=== PATIENT | female | born 1950 | race Caucasian/White ===

== ENCOUNTER 2019-12-28 00:43 | Day surgery (SDC) | payer MEDICARE, SELFPAY ==
[2019-10-25 15:27] VITALS: BMI 24.9
[2019-12-25 15:18] VITALS: BMI 25.2
[2019-12-28 09:05] VITALS: BP 126/87; PULSE 85; RESP 14; TEMP 36.3; O2SAT 96
--- NOTE | 2019-12-28 09:06 | PM.IMHP ---
H&P: HPI History of Present Illness Chief complaint: Dysphagia Narrative: Stephanie Reyes is a 69 year old female presents today for EGD. She had EGD in 06/2019 and had noted large hiatal hernia. She does tell me she has had motility study in the past and refuses to do it again. She was also stretched with 54 F farooq dilator with good symptom relief up intill a few months ago. She is having dysphagia to meats and breads again. She does take omeprazole 40 mg BID. She says this keeps GERD symptoms undercontrol. She denies nausea, vomiting or odynophgia. She had colonoscopy 09/2019 and had TA polyp. She denies any acute bowel habit changes, diarrhea, constipation, melena, hematochezia, abdominal pains or rectal pains. Denies abnormal weight loss, fever or chills. Review of Systems Review of Systems: All systems reviewed & are unremarkable except as noted in HPI and below PMFSH Past Medical History Medical History (Updated 12/28/19 @ 09:09 by Jessica Martines, BATCHMAKER) Anxiety Arthritis Chronic GERD Depression Diabetes Dysphagia Hiatal hernia Hiatal hernia HTN (hypertension) Hx of colonic polyps Hypercholesterolemia Surgical History Surgical History (Updated 10/05/19 @ 11:37 by Jessica Martines, BATCHMAKER) Hx of appendectomy Hx of arthroscopy of left knee Hx of carpal tunnel repair Hx of colonoscopy Hx of esophagogastroduodenoscopy Hx of total hysterectomy Family History Family History (Updated 10/05/19 @ 11:38 by Jessica Martines, BATCHMAKER) Mother Cerebrovascular accident Family history of malignant neoplasm Family history of diabetes mellitus in first degree relative Hypertension Sibling Family history of tuberculosis Family history of malignant neoplasm of thyroid Daughter Brain cancer Sibling Breast cancer Other Family history of coronary artery disease Social History Social History (Updated 10/05/19 @ 11:38 by Jessica Martines, BATCHMAKER) Smoking packs per day: 0.5 Smoking cigarettes per day: 10.0 Years smoked: 20 Smoking pack-years: 10.00 Smoking status: Former smoker Smoking end date: 11/15/03 Alcohol intake: former Substance use: never Gender identity (if verbalized by the patient): Female Meds Home Medications and Allergies Home Medications Medication Instructions Recorded Confirmed Type aspirin [Aspir-Low] 81 mg PO DAILY 12/25/19 12/25/19 History atorvastatin 40 mg PO DAILY 12/25/19 12/25/19 History losartan-hydrochlorothiazide 1 tablet PO DAILY 12/25/19 12/25/19 History magnesium oxide 400 mg PO DAILY 12/25/19 12/25/19 History metformin 500 mg PO BID 12/25/19 12/25/19 History omeprazole 40 mg PO BID 12/25/19 12/25/19 History sertraline 100 mg PO DAILY 12/25/19 12/25/19 History trazodone 50 mg PO HS 12/25/19 12/25/19 History Allergies Allergy/AdvReac Type Severity Reaction Status Date / Time codeine Allergy Unknown Nausea and Verified 12/28/19 09:03 Vomiting morphine Allergy Unknown Headache Verified 12/28/19 09:03 Exam Const: General: cooperative, healthy appearing, comfortable, alert and awake Nutritional Appearance: average body habitus Orientation/consciousness: oriented to person, oriented to place, oriented to time and patient oriented x3 Limitations: no limitations HENMT: Head: normal to inspection and normocephalic Mouth: Yes Normal oral and palatal mucosa present and Yes moist mucous membranes Neck: Neck: normal visual inspection, supple and no JVD Carotids: no bruits Resp: Effort & Inspection: normal respiratory effort and no respiratory distress Auscultation: diminished lung sounds Cardio: Rate: regular rate Rhythm: regular rhythm Heart sounds: S1 normal heart sound present, S2 normal heart sound present, no gallops, no murmurs and no rubs GI: Inspection: normal to inspection GI Palp: Yes abdominal tenderness (left lower quadrant) and No No hepatosplenomegaly present Percussion: Yes normal to percussion Auscultation: normal keith
[2019-12-28] MEDS: LACTATED RINGERS 1,000 ML 150 ML IV CONT (09:12)
[2019-12-28 09:36] LABS: Glucose Point of Care 89 (65-105)
--- NOTE | 2019-12-28 09:36 | WPDANESEPPF ---
Anes - Initial Pre Proc Eval Procedure: Operation Date: 12/28/19 10:00 Proposed Procedures p Esophagogastroduodenoscopy - Marko Cosme DO Date/Time: 12/28/19 09:36 Surgeon: Marko Cosme DO Pre Op Diagnosis: Dysphagia Patient Data Age: 69 Gender: F Height: 5 ft 6 in Weight: 67.9 kg Last Vital Signs Temp 97.3 F L 12/28/19 09:05 Pulse 85 12/28/19 09:05 Resp 14 12/28/19 09:05 BP 126/87 12/28/19 09:05 Pulse Ox 96 12/28/19 09:05 Allergies Allergy/AdvReac Type Severity Reaction Status Date / Time codeine Allergy Unknown Nausea and Verified 12/28/19 09:03 Vomiting morphine Allergy Unknown Headache Verified 12/28/19 09:03 Home Medications Medication Instructions Recorded Confirmed Type aspirin [Aspir-Low] 81 mg PO DAILY 12/25/19 12/25/19 History atorvastatin 40 mg PO DAILY 12/25/19 12/25/19 History losartan-hydrochlorothiazide 1 tablet PO DAILY 12/25/19 12/25/19 History magnesium oxide 400 mg PO DAILY 12/25/19 12/25/19 History metformin 500 mg PO BID 12/25/19 12/25/19 History omeprazole 40 mg PO BID 12/25/19 12/25/19 History sertraline 100 mg PO DAILY 12/25/19 12/25/19 History trazodone 50 mg PO HS 12/25/19 12/25/19 History Laboratory Tests 12/28/19 09:20 POC Capillary Glucose Pending Patient hx anesthesia problems: none Family hx anesthesia problems: none PMFSH Past Medical History Medical History (Updated 12/28/19 @ 09:09 by Jessica Martines, SINTER MACHINE OPERATOR) Anxiety Arthritis Chronic GERD Depression Diabetes Dysphagia Hiatal hernia Hiatal hernia HTN (hypertension) Hx of colonic polyps Hypercholesterolemia Surgical History Surgical History (Updated 10/05/19 @ 11:37 by Jessica Martines, SINTER MACHINE OPERATOR) Hx of appendectomy Hx of arthroscopy of left knee Hx of carpal tunnel repair Hx of colonoscopy Hx of esophagogastroduodenoscopy Hx of total hysterectomy Family History Family History (Updated 10/05/19 @ 11:38 by Jessica Martines, SINTER MACHINE OPERATOR) Mother Cerebrovascular accident Family history of malignant neoplasm Family history of diabetes mellitus in first degree relative Hypertension Sibling Family history of tuberculosis Family history of malignant neoplasm of thyroid Daughter Brain cancer Sibling Breast cancer Other Family history of coronary artery disease Social History Social History (Updated 10/05/19 @ 11:38 by Jessica Martines, SINTER MACHINE OPERATOR) Smoking packs per day: 0.5 Smoking cigarettes per day: 10.0 Years smoked: 20 Smoking pack-years: 10.00 Smoking status: Former smoker Smoking end date: 11/15/03 Alcohol intake: former Substance use: never Gender identity (if verbalized by the patient): Female Anes - Eval Final PreProcedure Day of Procedure 12/28/19 09:36 Patient weight: normal Heart: regular rate and rhythm Lungs: clear to auscultation Airway: Mallampati scale class II Neurological: alert and oriented Last oral intake: >/= 8 hours ASA classification: III Emergent: no Anesthetic plan: proceed Anesthesia type and monitoring: general GIVS and standard monitoring Informed Consent: The patient's anesthetic plan and its attendant risks and benefits were discussed with the patient/family/POA. Questions were solicited and answers provided to the satisfaction of the patient/family/POA.
[2019-12-28 10:24] VITALS: BP 92/56; PULSE 69; RESP 16; O2SAT 97
[2019-12-28 10:34] VITALS: BP 107/68; PULSE 69; RESP 18; O2SAT 99
[2019-12-28 10:44] VITALS: BP 111/72; PULSE 70; RESP 19; O2SAT 96
== END 2019-12-28 11:01 | disposition home or self-care (01) ==
PROVIDERS: PCP Family Medicine; Visit Provider Internal Medicine Gastroenterology
PROC: 0DJ08ZZ Inspection of Upper Intestinal Tract, Via Natural or Artificial Opening Endoscopic (ICD-10-PCS; CPT 43235; principal; 2019-12-28 10:00)
DX: K22.4 Dyskinesia of esophagus (principal); K44.9 Diaphragmatic hernia without obstruction or gangrene; K29.70 Gastritis, unspecified, without bleeding; K21.9 Gastro-esophageal reflux disease without esophagitis; I10 Essential (primary) hypertension; E78.00 Pure hypercholesterolemia, unspecified; E11.9 Type 2 diabetes mellitus without complications; F41.8 Other specified anxiety disorders; M19.90 Unspecified osteoarthritis, unspecified site; Z79.82 Long term (current) use of aspirin; Z79.84 Long term (current) use of oral hypoglycemic drugs; Z87.891 Personal history of nicotine dependence
CPT/HCPCS: 43239; 43249; C1726; J2704; J7120

== ENCOUNTER 2020-01-05 11:47 | Emergency (ER) | payer MEDICARE, SELFPAY ==
--- NOTE | ~2020-01-05 | CT_ITS ---
EXAMINATION: CT thoracic lumbar wo con EXAM DATE: 01/05/2020 13:53 INDICATION: No known recent injury provided at this time. Pain of the thoracolumbar pain. TECHNIQUE: Spiral CT thoracic lumbar wo con was performed without contrast. Axial, coronal and sagi ttal images thoracic spine were reviewed. Axial, coronal and sagittal images of the lumbar spine were reviewed. The dose-length product (DLP) for this examination was 1613.20 mGy-cm. The exposure was tailored according to patient size (auto mA exposure control), and iterative reconstruction (ASIR) w as used as additional dose reduction technique. There is no prior study for comparison. FINDINGS: Thoracic spine: There are no bony erosions identified. There is mild to moderate mid thoracic disc disease, mild upper and lower thoracic disc disease. The vertebral bodies are aligned in the AP dime nsion. Thoracic vertebral body heights are relatively well-maintained. At T2-3 there is moderate to severe right, moderate left neural foraminal stenosis, with moderate arthropathy at this level. Other [place] overall mild thoracic facet arthropathy. The T3-4 facet joints are fused. Thoracic central canal appears widely patent, no osseous stenosis. There are no acute fractures identified. Paraspinal soft tissue is unremarkable. There is mid thoracic kyphosis. There is moderate sliding gastroesophageal h iatal hernia. Dependent groundglass opacity consistent with atelectasis. Lumbar spine: Mild sigmoid diverticulosis. There are no acute fractures identified. There is 2 mm ret rolisthesis L1 on L2. 2 mm anterolisthesis L3 on L4. Moderate disc disease L5-S1, mild at the other l umbar levels. Vertebral body heights are maintained. Small lumbar endplate osteophytes. There is mode rate right, mild to moderate left sacroiliac primary osteoarthritis. Number than mild lumbar central canal stenosis. There is mild to moderate L4-5 bilateral neural foraminal stenosis and left L5-S1 ne ural foraminal stenosis. Less neural foraminal stenosis at the other lumbar levels. Mild aortic arter ial sclerosis. There is advanced lumbar facet arthropathy. There are no bony erosions identified. IMPRESSION: 1. No acute thoracolumbar findings. 2. Thoracal lumbar spondylosis as detailed above. 3. Moderate hiatal hernia. Reviewed, dictated and finalized at location A. OR TALENT MANAGEMENT CONSULTANT
[2020-01-05 12:00] VITALS: BP 102/76; PULSE 89; RESP 20; TEMP 37.2; O2SAT 92
--- NOTE | 2020-01-05 12:32 | ED.BACK ---
HPI - Back Pain/Injury General Chief Complaint: Back Pain/Injury Stated Complaint: back pain Time Seen by Provider: 01/05/20 12:19 Source: patient Mode of arrival: EMS Limitations: no limitations History of Present Illness HPI Narrative: The pt is a 69 y/o female who presents to the ED, via EMS, c/o diffuse back pain onset three weeks ago. Pt states that she has a PMHx of arthritis and DDD. Pt states that the pain radiates to the flank and shoulders. She notes that her pain has been particularly bad today, and that movement has worsened her pain. Pt denies any fall or injury. She also denies SOB, CP, and ABD pain. MD elicited complaint: back pain Pertinent past history: arthritis and other (DDD) Onset (ago): week(s) (3) Radiation: other (Bilateral shoulders and flanks) Exacerbating factors: movement Associated symptoms: denies other symptoms Related Data Home Medications Medication Instructions Recorded Confirmed aspirin [Aspir-Low] 81 mg PO DAILY 12/25/19 12/25/19 atorvastatin 40 mg PO DAILY 12/25/19 12/25/19 losartan-hydrochlorothiazide 1 tablet PO DAILY 12/25/19 12/25/19 magnesium oxide 400 mg PO DAILY 12/25/19 12/25/19 metformin 500 mg PO BID 12/25/19 12/25/19 omeprazole 40 mg PO BID 12/25/19 12/25/19 sertraline 100 mg PO DAILY 12/25/19 12/25/19 trazodone 50 mg PO HS 12/25/19 12/25/19 Allergies Allergy/AdvReac Type Severity Reaction Status Date / Time codeine Allergy Unknown Nausea and Verified 12/28/19 09:03 Vomiting morphine Allergy Unknown Headache Verified 12/28/19 09:03 Review of Systems Review of Systems: All systems reviewed & are unremarkable except as noted in HPI and below Cardiovascular: Cardiovascular: Denies chest pain Respiratory: Respiratory: Denies dyspnea Gastrointestinal: Gastrointestinal: Denies abdominal pain Musculoskeletal: Musculoskeletal: Reports back pain (Diffuse and radiating to the bilateral shoulders and flanks) [facility] Past Medical History Medical History (Updated 01/05/20 @ 14:40 by Curtis Honeycutt MD) Anxiety Arthritis Chronic GERD DDD (degenerative disc disease) Depression Diabetes Dysphagia Hiatal hernia Hiatal hernia HTN (hypertension) Hx of colonic polyps Hypercholesterolemia Surgical History Surgical History Hx of appendectomy Hx of arthroscopy of left knee Hx of carpal tunnel repair Hx of colonoscopy Hx of esophagogastroduodenoscopy Hx of total hysterectomy Family History Family History Mother Cerebrovascular accident Family history of malignant neoplasm Family history of diabetes mellitus in first degree relative Hypertension Sibling Family history of tuberculosis Family history of malignant neoplasm of thyroid Daughter Brain cancer Sibling Breast cancer Other Family history of coronary artery disease Social History Social History Smoking packs per day: 0.5 Smoking cigarettes per day: 10.0 Years smoked: 20 Smoking pack-years: 10.00 Smoking status: Former smoker Smoking end date: 11/15/03 Alcohol intake: former Substance use: never Gender identity (if verbalized by the patient): Female Exam Const: General: cooperative, healthy appearing, comfortable, no acute distress, well developed, alert and awake; No confusion Orientation/consciousness: oriented to person, oriented to place, oriented to time, patient oriented x3 and No confusion Limitations: no limitations Resp: Effort & Inspection: normal respiratory effort, able to speak in complete sentences, no respiratory distress and not tachypneic Auscultation: clear to auscultation bilaterally, no crackles, no rales, no rhonchi and no wheezes Cardio: Rate: regular rate Rhythm: regular rhythm Back/Spine/Pelvis: Back: no CVA tenderness Thoracic/Lumbar Spine: paraspinal muscle tenderness (Thoracic and lum
[2020-01-05] MEDS: KETOROLAC 15 MG/ML VIAL (*BKC) IV PUSH (14:00)
[2020-01-05 14:30] VITALS: BP 98/73; PULSE 76; RESP 19; O2SAT 96
[2020-01-05 15:50] VITALS: BP 119/77; PULSE 78; RESP 16; TEMP 36.9; O2SAT 95
--- NOTE | 2020-01-05 16:04 | PC.NURSE ---
1405 PT WAS GIVEN VALIUM AND BECAME LETHARGIC. O2 SAT 86-88%. PT DID ARROUSE WITH VERBAL STIMULATION. O2 APPLIED AT 2L PER N/C. ERMD MADE AWARE. PT'S AT BEDSIDE.
== END 2020-01-05 15:50 | disposition home or self-care (01) ==
PROVIDERS: Emergency Provider Emergency Medicine; PCP Family Medicine
DX: M54.6 Pain in thoracic spine (principal); M54.5 Low back pain; M19.90 Unspecified osteoarthritis, unspecified site; K21.9 Gastro-esophageal reflux disease without esophagitis; E11.9 Type 2 diabetes mellitus without complications; I10 Essential (primary) hypertension; F32.9 Major depressive disorder, single episode, unspecified; F41.9 Anxiety disorder, unspecified; Z79.82 Long term (current) use of aspirin; E78.00 Pure hypercholesterolemia, unspecified; Z87.891 Personal history of nicotine dependence; K44.9 Diaphragmatic hernia without obstruction or gangrene; M47.815 Spondylosis without myelopathy or radiculopathy, thoracolumbar region; Z79.84 Long term (current) use of oral hypoglycemic drugs
CPT/HCPCS: 72128; 72131; 96374; 96375; 99284; J1100; J1885; J3360

== ENCOUNTER 2020-10-08 07:32 | Outpatient (CLI) | payer MEDICARE, SELFPAY ==
--- NOTE | ~2020-10-08 | XR_ITS ---
EXAMINATION: XR UGIAC w barium swallow DATE: 10/08/2020 08:41 INDICATION: Diaphragmatic hernia. Dyspnea. TECHNIQUE: Thick barium contrast with gas effervescent crystals were administered orally. Fluoroscop ic images of the esophagus, stomach, and proximal duodenum were obtained in various projections. The reafter, overhead images of the abdomen were performed. 1.1 minutes of fluroscopy. DAP 12.9. 42 fluor oscopic images. FINDINGS: No prior studies for comparison. The esophagus is normal in caliber, without mucosal lesions or strictures. There is normal esophagea l peristalsis. There is a large hiatal hernia. No gastroesophageal reflux witnessed during the cours e of the study. The gastric folds are normal. The proximal duodenum is also normal in appearance. IMPRESSION: 1. Large hiatal hernia. Reviewed, dictated and finalized at location A. ITY ASSURANCE TESTER IMPRESSION: 1. Large hiatal hernia.
== END 2020-10-08 07:33 | disposition home or self-care (01) ==
LOC: ANHIMG 07:40
PROVIDERS: PCP Family Medicine; Visit Provider Internal Medicine Gastroenterology
DX: K44.9 Diaphragmatic hernia without obstruction or gangrene (principal)
CPT/HCPCS: 74246

== ENCOUNTER 2021-04-10 10:54 | Inpatient (IN) | payer MEDICARE, SELFPAY ==
[2021-04-10] VITALS (35 sets, daily range): BP systolic 94–133; BP diastolic 59–90; PULSE 60–94; RESP 10–26; TEMP 36.2–37.2; O2SAT 93–99; BMI 19.1; BMI 18.4
--- NOTE | ~2021-04-10 | CT_ITS ---
EXAMINATION: CT abdomen pelvis w con INDICATION: Upper abdominal pain and weight loss TECHNIQUE: Computed tomographic images of the abdomen and pelvis were obtained after the administrati on of 100 cc of Omnipaque 350 intravenous contrast. The dose-length product (DLP) was 291.05 mGy-cm. Automated exposure control and iterative reconstruction technique were employed. COMPARISON: 09/26/2019, 07/10/2019 FINDINGS: The lung bases are clear. The heart size is normal. There is a large sliding hiatal hernia. The liver is diffusely low in attenuation when compared with the spleen, consistent with hepatic jared atosis. Punctate calcifications in an otherwise normal spleen likely represent healed granulomatous d isease. A stone is present in the nondistended gallbladder. There is chronic mild enlargement of the common bile duct which measures up to 12 mm. The right kidney is unremarkable. There is a 1.7 cm soft tissue density mass of the right kidney which is slightly increased in size. There are changes of hy sterectomy. Multiple phleboliths are noted in the pelvis. Colonic diverticulosis is present without e vidence of diverticulitis. No pathologically enlarged abdominal or pelvic lymph nodes are identified. There is no free intraperitoneal gas or evidence of bowel obstruction. There is moderate lower lumba r spondylosis. IMPRESSION: 1. No CT correlate for the patient's symptoms. 2. Large sliding hiatal hernia. 3. Cholelithiasis. 4. Chronic mild dilation of the common bile duct. 5. Left kidney mass with slight increase in size which could reflect a proteinaceous cyst however fol low-up with nonemergent CT or MRI without and with contrast is recommended. Reviewed, dictated and finalized at location A. IMPRESSION: 1. No CT correlate for the patient's symptoms. 2. Large sliding hiatal hernia. 3. Cholelithiasis. 4. Chronic mild dilation of the common bile duct. 5. Left kidney mass with slight increase in size which could reflect a proteina ceous cyst however follow-up with nonemergent CT or MRI without and with contra st is recommended.
--- NOTE | ~2021-04-10 | US_ITS ---
US abdomen limited INDICATION: Upper abdominal pain PROCEDURE: Realtime right upper abdominal ultrasound. COMPARISON: No prior studies for comparison. FINDINGS: The pancreas is normal without focal mass or pancreatic ductal dilation. Liver echotexture is normal without focal mass or intrahepatic biliary dilatation. There is normal directional flow i n the portal vein. There are gallstones. There is gallbladder wall thickening. Common bile duct measures 11 mm. Positi ve sonographic Peguero's sign. IMPRESSION: 1: Cholelithiasis with gallbladder wall thickening, biliary dilatation and positive sonographic Nelly y sign. Findings compatible with acute cholecystitis. Clinically correlate. Reviewed, dictated and finalized at location A. IMPRESSION: 1: Cholelithiasis with gallbladder wall thickening, biliary dilatation and posi tive sonographic Peguero sign. Findings compatible with acute cholecystitis. Cli nically correlate.
--- NOTE | ~2021-04-10 | XR_ITS ---
EXAMINATION: XR chest 2V DATE: 04/10/2021 13:07 INDICATION: Shortness of breath. Nausea. TECHNIQUE: Frontal and lateral views of the chest were obtained. COMPARISON: Chest single view 08/26/2019, CT abdomen and pelvis 04/10/2021 FINDINGS: The chest demonstrates clear lungs without pneumonia, pleural effusion, or pneumothorax. Th e heart size is normal. There is a moderate-sized hiatal hernia. IMPRESSION: 1. Moderate-sized hiatal hernia. Reviewed, dictated and finalized at location B.
[2021-04-10 11:12] LABS: Basophils Absolute Auto 0.1 K/mm3 (0.0-0.1); Basophils Percent Auto 0.6 % (0.2-1.2); Eosinophils Absolute Auto 0.2 K/mm3 (0-0.3); Eosinophils Percent Auto 1.4 % (0-4.4); Hematocrit 41.3 % (37.0-47.0); Hemoglobin 14.2 g/dL (12.0-15.0); Immature Granulocyte Absolute 0.03 K/mm3 (0.00-0.031); Immature Granulocyte Percent A 0.2 % (0-0.5); Lymphocytes Absolute Auto 4.08 K/mm3 (0.9-3.2); Mean Corpuscular HGB Conc 34.4 g/dl (32-36); Mean Corpuscular Hemoglobin 33.3 pg (26-34); Mean Corpuscular Volume 96.9 fl (80-100); Mean Platelet Volume 10.1 fl (7.4-10.4); Monocytes Absolute Auto 0.8 K/mm3 (0.1-0.6); Monocytes Percent Auto 6.3 % (2.6-8.5); Neutrophils Absolute Auto 7.2 K/mm3 (1.3-6.7); Neutrophils Percent Auto 58.5 % (45.5-73.1); Platelet Count Result 372 k/mm3 (150-375); Red Blood Count 4.26 M/mm3 (4.2-5.4); Red Cell Distribution Width 12.8 % (11.5-14.5); White Blood Count 12.4 K/mm3 (4.5-10.0)
[2021-04-10 11:23] LABS: Alanine Aminotransferase 22 U/L (4-35); Albumin Level 4.7 g/dL (3.5-5.1); Alkaline Phosphatase 61 U/L (38-126); Anion Gap 9 mmol/L (8-16); Aspartate Amino Transferase 53 U/L (14-36); Bilirubin,Total 0.7 mg/dL (0.2-1.3); Blood Urea Nitrogen 10 mg/dL (7-17); Calcium 10.2 mg/dL (8.4-10.2); Carbon Dioxide 33 mmol/L (22-30); Chloride 92 mmol/L (98-107); Estimated Glomerular Filt Rate > 60; Glucose 107 mg/dL (65-105); Lipase 89 U/L (23-300); Potassium 3.5 mmol/L (3.4-5.0); Sodium 134 mmol/L (137-145)
[2021-04-10 11:43] LABS: Add Urine Microscopic? YES; Appearance Urine Cloudy (Clear); Bacteria Urine 1+ /hpf; Bilirubin Urine Negative (Negative); Blood Urine 2+ (Negative); Glucose Urine UA Negative (Negative); Ketones Urine Negative (Negative); Leukocyte Esterase Ur 3+ LEU/UL (Negative); Mucus Urine Rare /lpf; Nitrate Urine Positive (Negative); Protein Urine 2+ mg/dL (Negative); RBC Urine 21-50 /hpf (0-2); Specific Grav Ur 1.013 (1.001-1.035); Squamous Epithelial Cell Urine Many /hpf (Few); Transitional Epi Cells Urine Few /hpf (None Seen); Urobilinogen Urine Negative mg/dL (<2.0); WBC Clumps Urine Present /HPF; WBC Urine >75 /hpf
[2021-04-10 11:44] LABS: Color Urine Yellow (Yellow)
--- NOTE | 2021-04-10 12:36 | ECG_ITS ---
Measurements Intervals Delong Rate: 62 P: 48 IL: 151 QRS: -9 QRSD: 90 T: 5 QT: 434 QTc: 442 Interpretive Statements SINUS RHYTHM CANNOT RULE OUT SEPTAL INFARCT, AGE INDETERMINATE BORDERLINE T WAVE ABNORMALITY- INFERIOR LEADS BASELINE ARTIFACT- II, III, AVR, AVF, V2-V6 ABNORMAL ECG Electronically Signed On 04-10-2021 14:15:42 CDT by Mynor Giles D.O.
--- NOTE | 2021-04-10 12:41 | ED.NAVMDI ---
HPI - Nausea/Vomiting/Diarrhea General Chief complaint: Nausea/Vomiting/Diarrhea Stated complaint: Abd pain Time Seen by Provider: 04/10/21 11:56 Source: patient Mode of arrival: ambulatory Limitations: no limitations History of Present Illness HPI Narrative: This is a 70-year-old female that presents the emergency department for ongoing GI issues over the last couple of weeks. Reports she is nauseous all the time. Reports she has not been eating much. Reports intermittent vomiting. Also reports vague abdominal pain. Reports she has lost a lot of weight over the last couple of months and feels generally weak. Denies fever, chest pain, shortness of breath, or dysuria. Related Data Home Medications Medication Instructions Recorded Confirmed aspirin [Aspir-Low] 81 mg PO DAILY 12/25/19 12/25/19 atorvastatin 40 mg PO DAILY 12/25/19 12/25/19 losartan-hydrochlorothiazide 1 tablet PO DAILY 12/25/19 12/25/19 magnesium oxide 400 mg PO DAILY 12/25/19 12/25/19 metformin 500 mg PO BID 12/25/19 12/25/19 omeprazole 40 mg PO BID 12/25/19 12/25/19 sertraline 100 mg PO DAILY 12/25/19 12/25/19 trazodone 50 mg PO HS 12/25/19 12/25/19 Allergies Allergy/AdvReac Type Severity Reaction Status Date / Time codeine Allergy Unknown Nausea and Verified 04/10/21 11:02 Vomiting morphine Allergy Unknown Headache Verified 04/10/21 11:02 Review of Systems Review of Systems: Narrative: CONSTITUTIONAL: Denies fever CARDIOVASCULAR: Denies chest pain RESPIRATORY: Denies dyspnea. GASTROINTESTINAL: Reports abdominal pain, nausea, vomiting GENITOURINARY: Denies dysuria NEUROLOGIC: Reports generalized weakness. All systems reviewed & are unremarkable except as noted in HPI and below PMFSH Past Medical History Medical History (Updated 04/10/21 @ 18:22 by Hilda Sol PA-C) Anxiety Arthritis Chronic GERD DDD (degenerative disc disease) Depression Diabetes Dysphagia Hiatal hernia Hiatal hernia HTN (hypertension) Hx of colonic polyps Hypercholesterolemia Surgical History Surgical History Hx of appendectomy Hx of arthroscopy of left knee Hx of carpal tunnel repair Hx of colonoscopy Hx of esophagogastroduodenoscopy Hx of total hysterectomy Family History Family History Mother Cerebrovascular accident Family history of malignant neoplasm Family history of diabetes mellitus in first degree relative Hypertension Sibling Family history of tuberculosis Family history of malignant neoplasm of thyroid Daughter Brain cancer Sibling Breast cancer Other Family history of coronary artery disease Social History Social History Smoking packs per day: 0.5 Smoking cigarettes per day: 10.0 Years smoked: 20 Smoking pack-years: 10.00 Smoking status: Former smoker Smoking end date: 11/15/03 Alcohol intake: former Substance use: never Gender identity (if verbalized by the patient): Female Exam Narrative: Exam Narrative: GENERAL: Elderly, well-nourished, and in no acute distress. HEAD: Normocephalic, atraumatic. EYES: EOMI. ENT: Nares clear, no rhinorrhea or epistaxis. Mucous membranes moist. Oropharynx without tonsillar hypertrophy exudate or other lesions. Bilateral TMs pearly montes non-bulging NECK: Supple. No adenopathy or masses. CHEST: Clear to auscultation. No respiratory distress. No wheezes rales or rhonchi HEART: Regular rate and rhythm. No murmur heard. Normal peripheral pulses. ABDOMEN: Soft, nondistended, normal active bowel sounds. There to the patient in the epigastrium, without guarding. No CVA tenderness EXTREMITIES: Normal range of motion. No edema. SKIN: Warm, dry, no rash. NEURO: No focal deficits. Alert and oriented x3. PSYCH: Normal mood and affect Course Consultations Consultation #1: Spoke with hospitalist about patient and work-
[2021-04-10] MEDS: ONDANSETRON INJ 4 MG/2 ML VIAL IV PUSH (12:48)
[2021-04-10] MEDS: FAMOTIDINE 20 MG/2 ML VIAL IV PUSH (12:48)
[2021-04-10] MEDS: SODIUM CHLORIDE 0.9% IV 1,000 ML 999 ML IV CONT (12:49)
--- NOTE | 2021-04-10 15:38 | PC.NURSE ---
Called lab and talked to Marko to add on Troponin.
[2021-04-10 16:04] LABS: Troponin I < 0.012 ng/mL (0.000-0.034)
[2021-04-10 16:51] LABS: Lactic Acid Reflex 0.8 mmol/L (0.7-2.1)
--- NOTE | 2021-04-10 19:27 | PC.NURSE ---
This patient, Stephanie Fabian, was admitted to [address] [place] [address] Room 320-01 at 1900. Patient/family oriented to hospital policies and general routines including ID bracelet, bed and alarms, visiting hours, pain management, procedures, bathroom and other care routines, personal items, smoking policy, room service/diet, and visiting hours. Information on how to activate the Rapid Response Team has been discussed. Patient/Family are encouraged to report perceived risks to care and to ask questions if they do not understand what they are told or what they should do.
--- NOTE | 2021-04-10 22:44 | PM.IMHP ---
H&P: HPI History of Present Illness Date/Time: 04/10/21 22:44 Chief Complaint: Abdominal pain Narrative: 70-year-old female with past medical history of essential hypertension, hyperlipidemia type 2 diabetes mellitus and chronic alcoholism who presented to the ER with nausea, decreased appetite and weight loss for at least several months. The patient reports that she has had a 40 lb weight loss over the last couple of months. She has had increasing frequency of nausea and episodes of vomiting. She reports frequent episodes of dry heaves. She denies any coffee-ground emesis or hematemesis. She reports that her stools have been normally formed but she is only having 1 or 2 stools a week due to her decreased oral intake. The patient's granddaughter reports that the patient has suffered several losses recently and has been drinking more alcohol to cope with those losses. The granddaughter reports the patient routinely drinks herself to sleep each night. The patient denies having any alcohol use but then reported to the nursing staff that her last beverage was 3 hours Prior to coming to the ER. She has not noticed any change in her ability to swallow solids or liquids. She has not had any measured fevers. She does report subjective chills several days ago. She reports diffuse abdominal pain. However, on exam with deep palpation the patient did not seem to have any reproducible pain in till I asked her about abdominal pain at which time she flinched away from my exam. She denies any cough or congestion. She denies any recent ill contacts. She had an EGD in December of 2019 which demonstrated a large hiatal hernia, gastritis, and dyskinesia of the esophagus. She had bougie dilatation of her esophagus. Her EGD was performed by . The patient does report increased urinary frequency and urgency over recent weeks. She denies any dysuria or hematuria. Source of information: Past medical records, ER records and patient report. Patient is a fair to poor historian. The patient's granddaughter does not want the staff to tell the patient that we know about her alcohol use. The granddaughter reports that the patient is estranged from most of her family and that the granddaughter is the only person left that the patient will tell the truth about her medical problems. She does not want to cause more strife between her grandmother and herself. Review of Systems Review of Systems: Narrative: 12 systems were reviewed with pertinent positives and negatives per HPI. Except as documented in the HPI, all other systems were reviewed and are negative. [facility] Past Medical History Medical History (Updated 04/11/21 @ 02:33 by Danielle Figueroa DO) Anxiety Arthritis Chronic GERD DDD (degenerative disc disease) Depression Diabetes Dysphagia Essential hypertension Gastritis Hepatic abscess (~08/2019) Hiatal hernia large Hypercholesterolemia Macular degeneration Surgical History Surgical History (Updated 04/11/21 @ 02:24 by Danielle Figueroa DO) History of bilateral carpal tunnel release History of bladder suspension procedure History of colonoscopy with polypectomy History of dilation and curettage x3 Hx of appendectomy Hx of arthroscopy of left knee Hx of esophagogastroduodenoscopy (12/28/19) Gastritis, dyskinesia of esophagus, hiatal hernia Hx of total hysterectomy Family History Family History (Updated 04/10/21 @ 23:16 by Danielle Figueroa DO) Mother Cerebrovascular accident Family history of malignant neoplasm Hypertension Coronary artery disease Depression with suicidal ideation Sibling Overdose sister Breast cancer sister Heart disease brother Thyroid cancer Tuberculosis Daughter Brain cancer Social History Social History (Updated 04/11/21 @ 02:28 by Danielle Figueroa DO) Social History: The patient is and lives with 1 of her sons. She raised 5 children. One of her daughters
[2021-04-11] VITALS (13 sets, daily range): BP systolic 103–138; BP diastolic 53–85; PULSE 65–99; RESP 14–22; TEMP 35.9–36.7; O2SAT 94–100; BMI 18.4
[2021-04-11] MEDS: SODIUM CHLORIDE 0.9% IV 1,000 ML 100 ML IV CONT ×3 (00:08→20:53)
[2021-04-11] MEDS: metroNIDAZOLE 500 MG/ISO 100ML 500 MG/100 ML BAG 100 MG IVPB ×5 (00:09→23:46)
[2021-04-11 00:32] LABS: Ethanol < 10 mg/dL (<10)
[2021-04-11 08:26] LABS: Glucose Point of Care 84 mg/dl (65-105)
[2021-04-11] MEDS: PANTOPRAZOLE SODIUM IV 40 MG VIAL IV PUSH ×2 (08:26→20:38)
[2021-04-11] MEDS: SERTRALINE HCL 50 MG TABLET 100 MG PO (08:55)
[2021-04-11] MEDS: LORazepam (*CRX) 1 MG TABLET PO (09:13)
--- NOTE | 2021-04-11 10:02 | WPDANESEPPF ---
Anes - Initial Pre Proc Eval Procedure: Operation Date: 04/11/21 10:00 Proposed Procedures p Laparoscopic Cholecystectomy - Zaina Stoner MD Date/Time: 04/11/21 10:02 Surgeon: Rosalina Alvarez PA-C Pre Op Diagnosis: Cholecystitis, UTI, General Weakness Patient Data Age: 70 Gender: F Height: 5 ft 6 in Weight: 51.8 kg Last Vital Signs Temp 36.1 C L 04/11/21 06:00 Pulse 67 04/11/21 06:00 Resp 16 04/11/21 06:00 BP 103/58 L 04/11/21 06:00 Pulse Ox 98 04/11/21 06:00 Allergies Allergy/AdvReac Type Severity Reaction Status Date / Time codeine Allergy Unknown Nausea and Verified 04/10/21 19:03 Vomiting morphine Allergy Unknown Headache Verified 04/10/21 19:03 Home Medications Medication Instructions Recorded Confirmed Type aspirin [Aspir-Low] 81 mg PO DAILY 12/25/19 04/10/21 History atorvastatin 40 mg PO DAILY 12/25/19 04/10/21 History losartan-hydrochlorothiazide 1 tablet PO DAILY 12/25/19 04/10/21 History magnesium oxide 400 mg PO DAILY 12/25/19 04/10/21 History metformin 500 mg PO BID 12/25/19 04/10/21 History omeprazole 40 mg PO BID 12/25/19 04/10/21 History sertraline 100 mg PO DAILY 12/25/19 04/10/21 History trazodone 300 mg PO HS 12/25/19 04/11/21 History Laboratory Tests 04/10/21 04/10/21 04/10/21 11:03 11:03 11:03 WBC 12.4 K/mm3 H K/mm3 (4.5-10.0) RBC 4.26 M/mm3 M/mm3 (4.2-5.4) Hgb 14.2 g/dL g/dL (12.0-15.0) Hct 41.3 % % (37.0-47.0) MCV 96.9 fl fl (80-100) MCH 33.3 pg pg (26-34) MCHC 34.4 g/dl g/dl (32-36) RDW 12.8 % % (11.5-14.5) Plt Count 372 k/mm3 k/mm3 (150-375) MPV 10.1 fl fl (7.4-10.4) Immature Gran % (Auto) 0.2 % % (0-0.5) Neut % (Auto) 58.5 % % (45.5-73.1) Lymph % (Auto) 33.0 % % (18.3-44.2) [place] % (Auto) 6.3 % % (2.6-8.5) Eos % (Auto) 1.4 % % (0-4.4) Baso % (Auto) 0.6 % % (0.2-1.2) Lymph # (Auto) 4.08 K/mm3 H K/mm3 (0.9-3.2) [place] # (Auto) 0.8 K/mm3 H K/mm3 (0.1-0.6) Eos # (Auto) 0.2 K/mm3 K/mm3 (0-0.3) Baso # (Auto) 0.1 K/mm3 K/mm3 (0.0-0.1) Abs Immat Gran (auto) 0.03 K/mm3 K/mm3 (0.00-0.031) Absolute Neuts (auto) 7.2 K/mm3 H K/mm3 (1.3-6.7) Absolute Nucleated RBC 0.0 K/mm3 K/mm3 (0.0-0.012) Nucleated RBC % 0.0 % % (0.0-0.2) Sodium 134 mmol/L L mmol/L (137-145) Potassium 3.5 mmol/L mmol/L (3.4-5.0) Chloride 92 mmol/L L mmol/L (98-107) Carbon Dioxide 33 mmol/L H mmol/L (22-30) Anion Gap 9 mmol/L mmol/L (8-16) BUN 10 mg/dL mg/dL (7-17) Creatinine 0.90 mg/dL mg/dL (0.7-1.0) Estim Creat Clear Calc Not Reportable Estimated GFR > 60 (59 - ) Glucose 107 mg/dL H mg/dL (65-105) POC Capillary Glucose Lactic Acid Calcium 10.2 mg/dL mg/dL (8.4-10.2) Total Bilirubin 0.7 mg/dL mg/dL (0.2-1.3) AST 53 U/L H U/L (14-36) ALT 22 U/L U/L (4-35) Alkaline Phosphatase 61 U/L U/L (38-126) Troponin I < 0.012 ng/mL ng/mL (0.000-0.034) Total Protein 8.0 g/dL g/dL (6.3-8.2) Albumin 4.7 g/dL g/dL (3.5-5.1) Lipase 89 U/L U/L (23-300) Urine Color Urine Appearance Urine pH Ur Specific [place] Urine Protein Urine Glucose (UA) Urine Ketones Ur Blood (Man) Urine Nitrate Urine Bilirubin Urine Urobilinogen Leukocyte Esterase Rfl Urine RBC Urine WBC Urine WBC Clumps Ur Squamous Epith Cells Ur Transition Epith Cell Urine Bacteria Hyaline Casts
[2021-04-11] MEDS: LACTATED RINGERS 1,000 ML 30 ML IV CONT (10:07)
[2021-04-11 10:09] LABS: Glucose Point of Care 76 mg/dl (65-105)
--- NOTE | 2021-04-11 10:20 | PM.CNGS ---
Assessment and Plan Assessment and plan (1) Acute cholecystitis: Code(s): K81.0 - Acute cholecystitis Status: Acute Assessment and Plan: pt cont to be quite symptomatic, will setup for urgent cholecystectomy (2) Alcoholism: Code(s): F10.20 - Alcohol dependence, uncomplicated Status: Acute Assessment and Plan: withdrawl precautions, anesthesia made aware History of Present Illness Consult details Consult date: 04/11/21 Reason for consult: gallstones Requesting physician: Rosalina Alvarez PA-C Narrative: Pt is a 70 y/o F presenting to hospital for eval of epigastric abd pain, discomfort progressively worsening over last few mos. Pt reports assoc fullness, bloating, N/V. Pt reports she has had a very poor appetite secondary to her symptomatology. Pt reports she has progressively gotten much weaker. Pt family reports she has been quite depressed and they are suspicious she is drinking a fair amount. Review of Systems Constitutional: Constitutional: Reports anorexia, Denies chills, Reports fatigue, Denies fever(s), Reports lethargy, Reports malaise, Reports poor appetite, Reports weakness, Denies weight gain and Reports weight loss Eyes: Eyes: Reports no additional eye complaints ENT: Reports system reviewed and no additional complaints, except as documented Cardiovascular: Cardiovascular: Reports no additional cardiovascular complaints Respiratory: Respiratory: Reports no additional respiratory complaints Gastrointestinal: Gastrointestinal: Reports as per HPI Genitourinary: Genitourinary: Reports no additional female genitourinary complaints Musculoskeletal: Musculoskeletal: Reports no additional musculoskeletal complaints Integumentary/Breasts: Skin/Breast: Reports system reviewed and no additional complaints, except as docu Neurologic: Reports system reviewed and no additional complaints, except as documented Psychiatric: Psychiatric: Reports no additional psychiatric complaints Endocrine: Endocrine: Reports no additional endocrine complaints Hematologic/Lymphatic: Hematologic/Lymphatic: Reports no additional hematologic/lymphatic complaints Allergic/Immunologic: Allergic/Immunologic: Reports no additional allergic/immunologic complaints [facility] Past Medical History Medical History Anxiety Arthritis Chronic GERD DDD (degenerative disc disease) Depression Diabetes Dysphagia Essential hypertension Gastritis Hepatic abscess (~08/2019) Hiatal hernia large Hypercholesterolemia Macular degeneration Surgical History Surgical History History of bilateral carpal tunnel release History of bladder suspension procedure History of colonoscopy with polypectomy History of dilation and curettage x3 Hx of appendectomy Hx of arthroscopy of left knee Hx of esophagogastroduodenoscopy (12/28/19) Gastritis, dyskinesia of esophagus, hiatal hernia Hx of total hysterectomy Family History Family History Mother Cerebrovascular accident Family history of malignant neoplasm Hypertension Coronary artery disease Depression with suicidal ideation Sibling Overdose sister Breast cancer sister Heart disease brother Thyroid cancer Tuberculosis Daughter Brain cancer Social History Social History Social History: The patient is and lives with 1 of her sons. She raised 5 children. One of her daughters of complications of her brain tumor. She was a homemaker. She has smoked less than a pack of cigarettes per day since she was a teenager. She quit smoking in the last couple of months. She adamantly denied alcohol use but her niece reported that the patient drinks heavily each night. The niece does not want the patient to know that she giron
--- NOTE | 2021-04-11 10:27 | WPDHPUPDATE1 ---
History and Physical Update Update Date/Time: 04/11/21 10:27 History and Physical has been reviewed, including an updated exam of the patient. There are NO changes in the patient's condition. Risks, benefits, and alternatives have been discussed and questions answered. Patient agrees to proceed with procedure.
[2021-04-11] MEDS: BUPIVACAINE/EPINEPHRINE 0.5% 10 ML VIAL 20 ML INFILTRATE (10:44)
--- NOTE | 2021-04-11 11:20 | PC.NURSE ---
Patient left room 320 for Laparoscopic Cholecystectomy around 0945.
--- NOTE | 2021-04-11 11:29 | P.OP_ITS ---
Procedure Note - Detailed Date of procedure: 04/11/21 Pre-op diagnosis: Cholecystitis, UTI, General Weakness acute cholecystitis Post-op diagnosis: same Procedure performed: laparoscopic cholecystectomy Description of procedure: The patient was taken to the operating room placed in the supine position. After adequate induction of general anesthesia, the patient was prepped and draped in normal sterile fashion. A time-out was then performed to verify the patient's identity as well as the procedure being performed. I then made a 5 mm incision in the infraumbilical region. Through this, a Veress needle was placed into the peritoneal cavity and CO2 gas was then insufflated. After adequate pneumoperitoneum was achieved, the Veress needle was removed and a 5 mm optiview trocar was placed through this incision under direct visualization. I then placed the laparoscope through this trocar site and under direct visualization placed a further 12 mm subxiphoid port as well as 2 additional 5 mm ports in the right upper abdomen. The gallbladder was then identified and was noted to be moderately inflamed. I was able to place a grasper at the dome of the gallbladder and this was retracted anterior and ceph alad up over the liver. A 2nd retractor was then placed at the infundibulum and retracted laterally, this allowed visualization of the triangle of Calot. I then was able to visualize the cystic duct in its entirety from its proximal insertion into the gallbladder, to its distal junction with the common hepatic/common bile duct junction. At this point, I carefully skeletonized the proximal cystic duct with the [place] dissector. I then clipped and transected the proximal cystic duct. Next I visualized the cystic artery. Again the artery was skeletonized, clipped, and transected. I then used the Bovie cautery to take down the peritoneal attachments of the gallbladder off the liver bed. Once the gallbladder specimen was completely detached, an endo-pouch was placed through the 12 mm port site. I then placed the gallbladder specimen into the Endo pouch and removed the endo-pouch from the 12 mm port site. The specimen will now be sent to pathology for further review. I then copiously irrigated the right upper quadrant. Hemostasis was noted in the liver bed, the clips were noted to be in good position on both the cystic duct stump and the cystic artery stump. No other pathology was noted in the right upper quadrant. I then moved the laparoscope to the subxiphoid port. No iatrogenic injury or other pathology was noted in the lower abdomen. I then closed the 12 mm trocar site under direct visualization using the Pino cone and 0 Vicryl suture. At this point, the abdomen was desufflated and all ports removed. All port sites were then closed with 4.O Monocryl subcuticular sutures. Dermabond was placed on each incision. The patient tolerated the procedure well, was extubated in the operating room postoperative and will be transferred to the recovery room in sta ble condition. Implants: none Anesthesia: GETA Surgeon: Zaina Stoner MD Estimated blood loss (mL): 5 Drains: No Packing: No Pathology: yes Complications: No immediate complications Condition: stable Disposition: PACU Findings: acute cholecystitis
--- NOTE | 2021-04-11 13:09 | PC.NURSE ---
Patient returned from PACU at 1300.
--- NOTE | 2021-04-11 13:38 | PM.IMPN ---
Progress Note: A&P Assessment and Plan (1) Acute cholecystitis: Code(s): K81.0 - Acute cholecystitis Status: Acute Assessment and Plan: RUQ US showed cholelithiasis with gallbladder wall thickening, biliary dilatation and positive sonographic Peguero sign consistent with acute cholecystitis. She is s/p laparoscopic cholecystectomy performed today by Dr. Stoner. Appreciate general surgery consultation Continue Levaquin and Flagy until further surgery recommendations. l Continue IV fluids Analgesics and antiemetics available as needed Advance diet per general surgery (2) Urinary tract infection: Qualifiers: Hematuria presence: without hematuria Urinary tract infection type: acute cystitis Qualified Code(s): N30.00 - Acute cystitis without hematuria Code(s): N39.0 - Urinary tract infection, site not specified Status: Acute Assessment and Plan: Urinalysis grossly abnormal upon presentation. No urinary symptoms. Continue Levaquin and Flagyl as above Urine culture is pending. Tailor antibiotics accordingly (3) Alcoholism: Code(s): F10.20 - Alcohol dependence, uncomplicated Status: Acute Assessment and Plan: Her granddaughter reports nightly alcohol use, though the patient denies alcohol use for many weeks. CIWA score as high as 19 today. Last CIWA was 9. No known history of alcohol withdrawal. Continue CIWA protocol Ativan prn CIWA >8. Consider scheduled librium based on CIWA scores. Initiate thiamine and folic acid Encourage alcohol cessation (4) Essential hypertension: Code(s): I10 - Essential (primary) hypertension Status: Inactive Assessment and Plan: Blood pressures reviewed. Last BP 128/61. Continue losartan and hydrochlorothiazide Monitor BP trends (5) Diabetes: Code(s): E11.9 - Type 2 diabetes mellitus without complications Status: Acute Assessment and Plan: Blood sugars are well controlled Continue Accu-Cheks, sliding scale insulin, and hypoglycemic protocol Continue metformin Check A1c (6) Depression: Qualifiers: Depression Type: major depressive disorder Major depression recurrence: recurrent Active/Remission status: currently active Major depression episode severity: moderate Qualified Code(s): F33.1 - Major depressive disorder, recurrent, moderate Code(s): F32.9 - Major depressive disorder, single episode, unspecified Status: Acute Assessment and Plan: The patient does seem to be at least moderately depressed and would benefit from adjustments in her antidepressants as outpatient. It appears that the patient's trazodone was recently increased on 04/05/2021 to 300 mg nightly. Continue trazodone Subjective Date/time seen: 04/11/21 13:38 Interval history: Date of service: 04/11/2021 Danette Fabian is a 70-year-old female with a history of anxiety and depression, diabetes mellitus, hypertension, hyperlipidemia, and chronic alcohol abuse who is seen in follow-up for acute cholecystitis. She is feeling poorly today. She endorses nausea with dry heaving. She also complains of a throbbing headache. She has body aches and chills but denies fever. She has been NPO today. She denies shortness of breath. She reports occasional cough. No chest pain or palpitations. Denies any urinary symptoms. Her last bowel movement was 3 days ago. She denies diarrhea. No significant abdominal pain. She endorses sweating and tremor. She denies hallucinations, agitation, or anxiety. She denies any recent alcohol use over the past several weeks, though her granddaughter notes was drinking as frequently as yesterday and often drinks until she falls asleep. Review of Systems Review of Systems: All systems reviewed & are unremarkable except as noted in HPI and below Exam Narrative: Exam Narrative: Ms. Fabian is a thin, frail 70-ye
[2021-04-11] MEDS: ATORVASTATIN 40 MG TABLET PO (14:42)
[2021-04-11] MEDS: hydroCHLOROthiazide 12.5 MG CAPSULE PO (14:42)
[2021-04-11] MEDS: FOLIC ACID 1 MG TABLET PO (14:42)
[2021-04-11] MEDS: LOSARTAN POTASSIUM 50 MG TABLET PO (14:42)
[2021-04-11] MEDS: MAGNESIUM OXIDE 400 MG TABLET PO (14:42)
[2021-04-11] MEDS: ASPIRIN 81 MG ENTERIC TABLET PO (14:42)
[2021-04-11] MEDS: THIAMINE HCL 100 MG TABLET PO (14:42)
[2021-04-11 15:16] LABS: Hematocrit 35.2 % (37.0-47.0); Hemoglobin 12.1 g/dL (12.0-15.0); Mean Corpuscular HGB Conc 34.4 g/dl (32-36); Mean Corpuscular Hemoglobin 33.5 pg (26-34); Mean Corpuscular Volume 97.5 fl (80-100); Mean Platelet Volume 9.9 fl (7.4-10.4); Platelet Count Result 293 k/mm3 (150-375); Red Blood Count 3.61 M/mm3 (4.2-5.4); Red Cell Distribution Width 12.5 % (11.5-14.5); White Blood Count 18.2 K/mm3 (4.5-10.0)
[2021-04-11] MEDS: ONDANSETRON INJ 4 MG/2 ML VIAL IV PUSH (15:17)
[2021-04-11 15:30] LABS: Anion Gap 10 mmol/L (8-16); Blood Urea Nitrogen 11 mg/dL (7-17); Calcium 8.9 mg/dL (8.4-10.2); Carbon Dioxide 26 mmol/L (22-30); Chloride 99 mmol/L (98-107); Estimated CRCL calculation 46 ml/min; Estimated Glomerular Filt Rate > 60; Glucose 93 mg/dL (65-105); Magnesium 1.1 mg/dL (1.6-2.3); Potassium 3.3 mmol/L (3.4-5.0); Sodium 135 mmol/L (137-145)
[2021-04-11 17:08] LABS: Glucose Point of Care 91 mg/dl (65-105)
[2021-04-11] MEDS: metFORMIN HCL 500 MG TABLET PO (17:43)
[2021-04-11] MEDS: traZODone HCL 50 MG TABLET 300 MG PO (20:37)
[2021-04-11 21:37] LABS: Glucose Point of Care 96 mg/dl (65-105)
[2021-04-12] VITALS: BP 129/76; PULSE 84; RESP 18; TEMP 35.9; O2SAT 98
[2021-04-12 02:25] LABS: Hemoglobin A1C 5.2 % (<5.7)
[2021-04-12 04:00] VITALS: BP 151/80; PULSE 88; RESP 16; TEMP 36.6; O2SAT 96
[2021-04-12] MEDS: SODIUM CHLORIDE 0.9% IV 1,000 ML 100 ML IV CONT ×2 (05:16→18:23)
[2021-04-12] MEDS: metroNIDAZOLE 500 MG/ISO 100ML 500 MG/100 ML BAG 100 MG IVPB ×3 (05:17→18:24)
[2021-04-12] MEDS: ONDANSETRON INJ 4 MG/2 ML VIAL IV PUSH (07:59)
[2021-04-12 08:00] VITALS: BP 114/69; PULSE 80; PULSE 88; RESP 16; TEMP 36.4; O2SAT 95; O2SAT 96
[2021-04-12 08:29] LABS: Glucose Point of Care 69 mg/dl (65-105)
--- NOTE | 2021-04-12 09:01 | PM.IMPN ---
Progress Note: A&P Assessment and Plan (1) Acute cholecystitis: Code(s): K81.0 - Acute cholecystitis Status: Acute Assessment and Plan: RUQ US showed cholelithiasis with gallbladder wall thickening, biliary dilatation and positive sonographic Peguero sign consistent with acute cholecystitis. She is s/p laparoscopic cholecystectomy performed today by Dr. Stoner. General surgery recommendation appreciated Continue Levaquin and Flagyl Continue IV fluids until patient able to tolerate regular diet Analgesics and antiemetics available as needed Advance diet per general surgery (2) Urinary tract infection: Qualifiers: Hematuria presence: without hematuria Urinary tract infection type: acute cystitis Qualified Code(s): N30.00 - Acute cystitis without hematuria Code(s): N39.0 - Urinary tract infection, site not specified Status: Acute Assessment and Plan: Urinalysis grossly abnormal upon presentation. No urinary symptoms. Continue Levaquin and Flagyl Follow urine culture results (3) Alcoholism: Code(s): F10.20 - Alcohol dependence, uncomplicated Status: Acute Assessment and Plan: Her granddaughter reports nightly alcohol use, though the patient denies alcohol use for many weeks. CIWA score as high as 19 today. Last CIWA was 9. No known history of alcohol withdrawal. Continue CIWA protocol Ativan prn CIWA >8. Consider scheduled librium based on CIWA scores. Initiate thiamine and folic acid Encourage alcohol cessation (4) Essential hypertension: Code(s): I10 - Essential (primary) hypertension Status: Inactive Assessment and Plan: Blood pressures reviewed. Stable Continue losartan Monitor BP trends (5) Diabetes: Code(s): E11.9 - Type 2 diabetes mellitus without complications Status: Acute Assessment and Plan: Blood sugars are well controlled Continue Accu-Cheks, sliding scale insulin, and hypoglycemic protocol DC metformin during hospitalization A1c (6) Depression: Qualifiers: Depression Type: major depressive disorder Major depression recurrence: recurrent Active/Remission status: currently active Major depression episode severity: moderate Qualified Code(s): F33.1 - Major depressive disorder, recurrent, moderate Code(s): F32.9 - Major depressive disorder, single episode, unspecified Status: Acute Assessment and Plan: The patient does seem to be at least moderately depressed and would benefit from adjustments in her antidepressants as outpatient. It appears that the patient's trazodone was recently increased on 04/05/2021 to 300 mg nightly. Continue trazodone Subjective Date/time seen: 04/12/21 09:01 Interval history: Patient seen and examined Patient feels weak she is complaining of abdominal pain and nausea Had cholecystectomy on 04/11/2021 Patient denies fever headache chest pain shortness of breath I am seeing the patient for abdominal pain Exam Narrative: Exam Narrative: Alert Chest no wheeze crackles Abdomen n no rebound no guarding positive tenderness CVS S1 + S2 Lower extremity edema Objective Data Vital Signs Vital Signs: Vital Signs - 24 hr 04/11/21 10:00 04/11/21 11:38 04/11/21 11:50 Temperature 97.6 F Pulse Rate 65 90 99 Respiratory Rate 20 21 H 18 Blood Pressure 107/53 L 121/74 138/79 Pulse Oximetry 99 100 100 04/11/21 12:05 04/11/21 12:20 04/11/21 12:44 Temperature Pulse Rate 91 78 73 Respiratory Rate 20 20 22 H Blood Pressure 136/85 120/73 118/74 Pulse Oximetry 99 97 95 04/11/21 13:00 04/11/21 13:15 04/11/21 14:00 Temperature 97.8 F 97.8 F 98.1 F Pulse Rate 83 82 80 Respiratory Rate 14 16 16 Blood Pressure 128/77 128/61 118/66 Pulse Oximetry 95 97 98 04/11/21 15:08 04/11/21 20:00 04/12/21 00:00 Temperature 97.8 F 96.6 F L 96.7 F L Pulse Rate 83 74 84 Respiratory Rate 16 1
[2021-04-12 09:05] LABS: Glucose Point of Care 112 mg/dl (65-105)
[2021-04-12] MEDS: ATORVASTATIN 40 MG TABLET PO (09:19)
[2021-04-12] MEDS: hydroCHLOROthiazide 12.5 MG CAPSULE PO (09:19)
[2021-04-12] MEDS: PANTOPRAZOLE SODIUM IV 40 MG VIAL IV PUSH ×2 (09:19→20:23)
[2021-04-12] MEDS: SERTRALINE HCL 50 MG TABLET 100 MG PO (09:19)
[2021-04-12] MEDS: THIAMINE HCL 100 MG TABLET PO (09:19)
[2021-04-12] MEDS: MAGNESIUM OXIDE 400 MG TABLET PO (09:20)
[2021-04-12] MEDS: FOLIC ACID 1 MG TABLET PO (09:20)
[2021-04-12] MEDS: LOSARTAN POTASSIUM 50 MG TABLET PO (09:20)
[2021-04-12] MEDS: ASPIRIN 81 MG ENTERIC TABLET PO (09:20)
[2021-04-12 12:00] VITALS: BP 115/79; PULSE 84; RESP 16; TEMP 36.9; O2SAT 97
[2021-04-12 12:13] LABS: Glucose Point of Care 175 mg/dl (65-105)
--- NOTE | 2021-04-12 12:14 | PM.PNGS ---
Progress Note: A&P Assessment and Plan (1) Acute cholecystitis: Code(s): K81.0 - Acute cholecystitis Status: Acute Assessment and Plan: doing well, cont to encourage po intake, home soon Subjective Subjective Date/Time Seen: 04/12/21 12:14 feels better, some mild incisional pain, still c poor appetitie Review of Systems Review of Systems: All systems reviewed & are unremarkable except as noted in HPI and below Exam Const: General: cooperative, comfortable and no acute distress Resp: Effort & Inspection: normal respiratory effort Auscultation: clear to auscultation bilaterally Cardio: Rate: regular rate Rhythm: regular rhythm GI: Inspection: normal to inspection, distended and incision GI Palp: Yes Soft to palpation and Yes Tenderness to palpation present (GI) Other: soft, sl dist, cristhian TTP, incisions C/D/I Objective Data Vital Signs Vital Signs: Vital Signs - 24 hr 04/11/21 12:20 04/11/21 12:44 04/11/21 13:00 Temperature 36.6 C Pulse Rate 78 73 83 Respiratory Rate 20 22 H 14 Blood Pressure 120/73 118/74 128/77 Pulse Oximetry 97 95 95 04/11/21 13:15 04/11/21 14:00 04/11/21 15:08 Temperature 36.6 C 36.7 C 36.6 C Pulse Rate 82 80 83 Respiratory Rate 16 16 16 Blood Pressure 128/61 118/66 133/74 Pulse Oximetry 97 98 96 04/11/21 20:00 04/12/21 00:00 04/12/21 04:00 Temperature 35.9 C L 35.9 C L 36.6 C Pulse Rate 74 84 88 Respiratory Rate 16 18 16 Blood Pressure 128/75 129/76 151/80 H Pulse Oximetry 94 98 96 04/12/21 08:00 Temperature 36.4 C Pulse Rate 80 Respiratory Rate 16 Blood Pressure 114/69 Pulse Oximetry 95 Intake/Output Intake/Output: Intake & Output 04/09/21 04/10/21 04/11/21 04/12/21 23:59 23:59 23:59 23:59 Intake Total 1050 2650 2200 Output Total 700 1200 Balance 1050 1950 1000 Meds/Results Medications: Active Medications Generic Name Dose Route Start Last Admin Trade Name Freq PRN Reason Stop Dose Admin Aspirin 81 mg 04/11/21 13:20 04/12/21 09:20 Aspirin 81 Mg Enteric Tablet PO 81 mg DAILY MARANDA Administration Atorvastatin Calcium 40 mg 04/11/21 13:25 04/12/21 09:19 Atorvastatin 40 Mg Tablet PO 40 mg DAILY MARANDA Administration Dextrose 12.5 gm 04/11/21 13:44 Dextrose 50% 25 Gm/50 Ml Syringe IV PUSH PRN PRN Hypoglycemia Protocol Folic Acid 1 mg 04/11/21 14:10 04/12/21 09:20 Folic Acid 1 Mg Tablet PO 1 mg DAILY MARANDA Administration Glucagon 1 mg 04/11/21 13:44 Glucagon For Inj 1 Mg Vial IM PRN PRN Hypoglycemia Protocol Glucose 15 gm 04/11/21 13:44 Glucose Oral Gel 15 Gm Of Glucse In 37.5 Gm Tube PO PRN PRN Hypoglycemia Protocol Hydrochlorothiazide 12.5 mg 04/11/21 13:35 04/12/21 09:19 Hydrochlorothiazide 12.5 Mg Capsule PO 12.5 mg DAILY MARANDA Administration Metronidazole 500 mg in 100 mls @ 100 mls/hr 04/10/21 23:00 04/12/21 05:17 Flagyl 500 Mg/Iso Soln 100 Ml IVPB 100 mls/hr Q6HR MARANDA Administration Levofloxacin/Dextrose 750 mg in 150 mls @ 100 mls/hr 04/10/21 22:00 04/11/21 01:28 Levaquin 750 Mg/D5w 150 Ml IVPB Infused Q48H MARANDA Infusion Sodium Chloride 1,000 mls @ 100 mls/hr 04/10/21 23:00 04/12/21 05:16 Normal Saline Iv IV CONT 100 mls/hr .Q10H MARANDA Administration Dextrose 1,000 mls @ 100 mls/hr 04/11/21 13:44 Dextrose 5% 1,000 Ml IVPB PRN PRN Hypoglycemia Protocol Acetaminophen 1,000 mg in 100 mls @ 400 mls/hr 04/12/21 01:32 04/12/21 08:00 Ofirmev 1,000 Mg Ivpb IVPB 04/13/21 01:33 400 mls/hr Q6H PRN Administration Pain Rated 4-6 Insulin Aspart 2 - 5 units 04/11/21 17:00 04/12/21 09:14 Insulin Aspart (*Bkc) 100 Units/Ml SUB-Q Not Given TIDWM MARANDA Protocol Lorazepam 1 mg 04/11/21 08:45 04/11/21 09:13 Lorazepam (*Crx) 1 Mg Tablet PO 1 mg Q6H PRN Administration CIWA >8 Losartan Potassium 50 mg 04/11/21 13:25 04/12/21 09:20 L
--- NOTE | 2021-04-12 12:43 | PCPTNOTE ---
Attempted PT evaluation this date. Pt declined stating that she just got back into bed and wants to stay in bed right now. Will attempt at a later date/time.
[2021-04-12 14:00] VITALS: BP 91/56; PULSE 75; RESP 16; TEMP 36.6; O2SAT 95
--- NOTE | 2021-04-12 14:40 | PCPTNOTE ---
Attempted PT evaluation again this afternoon, pt declined therapy today, stating I don't feel like doing anything. Will attempt again at a later date/time.
[2021-04-12 16:14] LABS: Glucose Point of Care 107 mg/dl (65-105)
[2021-04-12] MEDS: traZODone HCL 50 MG TABLET 300 MG PO (20:23)
[2021-04-12 20:38] LABS: Glucose Point of Care 98 mg/dl (65-105)
[2021-04-12 22:01] VITALS: BP 110/60; PULSE 76; RESP 18; TEMP 36.4; O2SAT 97
[2021-04-13] MEDS: metroNIDAZOLE 500 MG/ISO 100ML 500 MG/100 ML BAG 100 MG IVPB ×4 (00:16→17:44)
[2021-04-13] MEDS: SODIUM CHLORIDE 0.9% IV 1,000 ML 100 ML IV CONT ×2 (03:28→16:16)
[2021-04-13 06:00] VITALS: BP 111/59; PULSE 56; RESP 18; TEMP 37; O2SAT 96
[2021-04-13] MEDS: ONDANSETRON INJ 4 MG/2 ML VIAL IV PUSH (06:12)
--- NOTE | 2021-04-13 07:18 | PM.PNGS ---
Progress Note: A&P Assessment and Plan (1) Acute cholecystitis: Code(s): K81.0 - Acute cholecystitis Status: Acute Assessment and Plan: routine postop care, pt reports similar sx as before surgery, will ask GI to see for possible scope, cont diet as niko (2) Abdominal pain: Code(s): R10.9 - Unspecified abdominal pain Status: Acute Assessment and Plan: see above Subjective Subjective Date/Time Seen: 04/13/21 07:18 sleeping comfortably this am, upon awaking pt c/o nausea, abd pain similar to before cholecystectomy Review of Systems Review of Systems: All systems reviewed & are unremarkable except as noted in HPI and below Exam Const: General: cooperative and comfortable Nutritional Appearance: cachectic Orientation/consciousness: patient oriented x3 Resp: Effort & Inspection: normal respiratory effort Auscultation: clear to auscultation bilaterally Cardio: Rate: regular rate Rhythm: regular rhythm GI: Inspection: normal to inspection, distended and incision GI Palp: Yes Soft to palpation, Yes Tenderness to palpation present (GI) and No Guarding due to palpation present (GI) Other: soft, sl dist, cristhian TTP, incisions C/D/I Objective Data Vital Signs Vital Signs: Vital Signs - 24 hr 04/12/21 08:00 04/12/21 12:00 04/12/21 14:00 Temperature 36.4 C 36.9 C 36.6 C Pulse Rate 80 84 75 Respiratory Rate 16 16 16 Blood Pressure 114/69 115/79 91/56 L Pulse Oximetry 95 97 95 04/12/21 22:01 04/13/21 06:00 Temperature 36.4 C L 37.0 C Pulse Rate 76 56 L Respiratory Rate 18 18 Blood Pressure 110/60 111/59 L Pulse Oximetry 97 96 Intake/Output Intake/Output: Intake & Output 04/10/21 04/11/21 04/12/21 04/13/21 23:59 23:59 23:59 23:59 Intake Total 1050 2650 5400 1220 Output Total 700 2050 1300 Balance 1050 1950 3350 -80 Meds/Results Medications: Active Medications Generic Name Dose Route Start Last Admin Trade Name Freq PRN Reason Stop Dose Admin Aspirin 81 mg 04/11/21 13:20 04/12/21 09:20 Aspirin 81 Mg Enteric Tablet PO 81 mg DAILY MARANDA Administration Atorvastatin Calcium 40 mg 04/11/21 13:25 04/12/21 09:19 Atorvastatin 40 Mg Tablet PO 40 mg DAILY MARANDA Administration Dextrose 12.5 gm 04/11/21 13:44 Dextrose 50% 25 Gm/50 Ml Syringe IV PUSH PRN PRN Hypoglycemia Protocol Folic Acid 1 mg 04/11/21 14:10 04/12/21 09:20 Folic Acid 1 Mg Tablet PO 1 mg DAILY MARANDA Administration Glucagon 1 mg 04/11/21 13:44 Glucagon For Inj 1 Mg Vial IM PRN PRN Hypoglycemia Protocol Glucose 15 gm 04/11/21 13:44 Glucose Oral Gel 15 Gm Of Glucse In 37.5 Gm Tube PO PRN PRN Hypoglycemia Protocol Hydrochlorothiazide 12.5 mg 04/11/21 13:35 04/12/21 09:19 Hydrochlorothiazide 12.5 Mg Capsule PO 12.5 mg DAILY MARANDA Administration Metronidazole 500 mg in 100 mls @ 100 mls/hr 04/10/21 23:00 04/13/21 06:10 Flagyl 500 Mg/Iso Soln 100 Ml IVPB 100 mls/hr Q6HR MARANDA Administration Levofloxacin/Dextrose 750 mg in 150 mls @ 100 mls/hr 04/10/21 22:00 04/12/21 22:35 Levaquin 750 Mg/D5w 150 Ml IVPB Infused Q48H MARANDA Infusion Sodium Chloride 1,000 mls @ 100 mls/hr 04/10/21 23:00 04/13/21 03:28 Normal Saline Iv IV CONT 100 mls/hr .Q10H MARANDA Administration Dextrose 1,000 mls @ 100 mls/hr 04/11/21 13:44 Dextrose 5% 1,000 Ml IVPB PRN PRN Hypoglycemia Protocol Insulin Aspart 2 - 5 units 04/11/21 17:00 04/12/21 16:20 Insulin Aspart (*Bkc) 100 Units/Ml SUB-Q Not Given TIDWM MARANDA Protocol Lorazepam 1 mg 04/11/21 08:45 04/11/21 09:13 Lorazepam (*Crx) 1 Mg Tablet PO 1 mg Q6H PRN Administration CIWA >8 Losartan Potassium 50 mg 04/11/21 13:25 04/12/21 09:20 Losartan Potassium 50 Mg Tablet PO 05/12/21 13:26 50 mg DAILY MARANDA Administration Magnesium Oxide 400 mg 04/11/21 13:25 04/12/21 09:20 Magnesium Oxide 400 Mg Ta
[2021-04-13 07:59] LABS: Glucose Point of Care 81 mg/dl (65-105)
[2021-04-13 08:00] VITALS: BP 139/88; PULSE 86
[2021-04-13] MEDS: THIAMINE HCL 100 MG TABLET PO (08:07)
[2021-04-13] MEDS: MAGNESIUM OXIDE 400 MG TABLET PO (08:07)
[2021-04-13] MEDS: SERTRALINE HCL 50 MG TABLET 100 MG PO (08:07)
[2021-04-13] MEDS: FOLIC ACID 1 MG TABLET PO (08:08)
[2021-04-13] MEDS: ATORVASTATIN 40 MG TABLET PO (08:08)
[2021-04-13] MEDS: ASPIRIN 81 MG ENTERIC TABLET PO (08:08)
[2021-04-13] MEDS: LOSARTAN POTASSIUM 50 MG TABLET PO (08:08)
[2021-04-13] MEDS: PANTOPRAZOLE SODIUM IV 40 MG VIAL IV PUSH ×2 (08:08→20:42)
[2021-04-13] MEDS: hydroCHLOROthiazide 12.5 MG CAPSULE PO (08:08)
--- NOTE | 2021-04-13 08:23 | PCPTNOTE ---
Attempted PT evaluation this date, pt declined due to pain. Will attempt at a later date/time.
--- NOTE | 2021-04-13 09:38 | P.PNIM_ITS ---
Progress Note: A&P Assessment and Plan (1) Acute cholecystitis: Code(s): K81.0 - Acute cholecystitis Status: Acute Assessment and Plan: RUQ US showed cholelithiasis with gallbladder wall thickening, biliary dil atation and positive sonographic Peguero sign consistent with acute cholecystitis. She is s/p laparoscopic cholecystectomy performed today by Dr. Stoner. * General surgery recommendation appreciated * Continue Levaquin and Flagyl * Continue IV fluids until patient able to tolerate regular diet * Analgesics and antiemetics available as needed * Advance diet per general surgery (2) Urinary tract infection: Qualifiers: Hematuria presence: without hematuria Urinary tract infection type: acute cystitis Qualified Code(s): N30.00 - Acute cystitis without hematuria Code(s): N39.0 - Urinary tract infection, site not specified Status: Acute Assessment and Plan: Urinalysis grossly abnormal upon presentation. No urinary symptoms. * Continue Levaquin and Flagyl * Follow urine culture results (3) Alcoholism: Code(s): F10.20 - Alcohol dependence, uncomplicated Status: Acute Assessment and Plan: Her granddaughter reports nightly alcohol use, though the patient denies alcohol use for many weeks. CIWA score as high as 19 today. Last CIWA was 9. No known history of alcohol withdrawal. * Continue CIWA protocol * Ativan prn CIWA >8. Consider scheduled librium based on CIWA scores. * Initiate thiamine and folic acid * Encourage alcohol cessation (4) Essential hypertension: Code(s): I10 - Essential (primary) hypertension Status: Inactive Assessment and Plan: Blood pressures reviewed. Stable * Continue losartan * Monitor BP trends (5) Diabetes: Code(s): E11.9 - Type 2 diabetes mellitus without complications Status: Acute Assessment and Plan: Blood sugars are well controlled * Continue Accu-Cheks, sliding scale insulin, and hypoglycemic protocol * DC metformin during hospitalization * A1c (6) Depression: Qualifiers: Depression Type: major depressive disorder Major depression recurrence: recurrent Active/Remission status: currently active Major depression episode severity: moderate Qualified Code(s): F33.1 - Major depressive disorder, recurrent, moderate Code(s): F32.9 - Major depressive disorder, single episode, unspecified Status: Acute Assessment and Plan: The patient does seem to be at least moderately depressed and would benefit from adjustments in her antidepressants as outpatient. It appears that the patient's trazodone was recently increased on 04/05/2021 to 300 mg nightly. * Continue trazodone (7) Nausea: Code(s): R11.0 - Nausea Status: Acute Assessment and Plan: Patient has history of diabetes on metformin, complained of nausea abdominal pain. * GI consult. * Reglan 5 mg IV every 6 hours for 4 doses. * Pepcid 20 mg IV twice a day. * Hold metformin. * Blood sugar control goal blood sugar less than 180. Subjective Date/time seen: 04/13/21 09:38 Interval history: Patient seen and examined Patient feels weak she is complaining of abdominal pain and nausea. Surgery recommendation appreciated. Plan for GI evaluation. With history of diabetes patient at high risk for gastroparesis, started on Reglan for 4 doses and also started on Pepcid. Had cholecystectomy on 04/11/2021. Patient denies fever headache chest pain s
--- NOTE | 2021-04-13 09:38 | PM.IMPN ---
Progress Note: A&P Assessment and Plan (1) Acute cholecystitis: Code(s): K81.0 - Acute cholecystitis Status: Acute Assessment and Plan: RUQ US showed cholelithiasis with gallbladder wall thickening, biliary dilatation and positive sonographic Peguero sign consistent with acute cholecystitis. She is s/p laparoscopic cholecystectomy performed today by Dr. Stoner. General surgery recommendation appreciated Continue Levaquin and Flagyl Continue IV fluids until patient able to tolerate regular diet Analgesics and antiemetics available as needed Advance diet per general surgery (2) Urinary tract infection: Qualifiers: Hematuria presence: without hematuria Urinary tract infection type: acute cystitis Qualified Code(s): N30.00 - Acute cystitis without hematuria Code(s): N39.0 - Urinary tract infection, site not specified Status: Acute Assessment and Plan: Urinalysis grossly abnormal upon presentation. No urinary symptoms. Continue Levaquin and Flagyl Follow urine culture results (3) Alcoholism: Code(s): F10.20 - Alcohol dependence, uncomplicated Status: Acute Assessment and Plan: Her granddaughter reports nightly alcohol use, though the patient denies alcohol use for many weeks. CIWA score as high as 19 today. Last CIWA was 9. No known history of alcohol withdrawal. Continue CIWA protocol Ativan prn CIWA >8. Consider scheduled librium based on CIWA scores. Initiate thiamine and folic acid Encourage alcohol cessation (4) Essential hypertension: Code(s): I10 - Essential (primary) hypertension Status: Inactive Assessment and Plan: Blood pressures reviewed. Stable Continue losartan Monitor BP trends (5) Diabetes: Code(s): E11.9 - Type 2 diabetes mellitus without complications Status: Acute Assessment and Plan: Blood sugars are well controlled Continue Accu-Cheks, sliding scale insulin, and hypoglycemic protocol DC metformin during hospitalization A1c (6) Depression: Qualifiers: Depression Type: major depressive disorder Major depression recurrence: recurrent Active/Remission status: currently active Major depression episode severity: moderate Qualified Code(s): F33.1 - Major depressive disorder, recurrent, moderate Code(s): F32.9 - Major depressive disorder, single episode, unspecified Status: Acute Assessment and Plan: The patient does seem to be at least moderately depressed and would benefit from adjustments in her antidepressants as outpatient. It appears that the patient's trazodone was recently increased on 04/05/2021 to 300 mg nightly. Continue trazodone (7) Nausea: Code(s): R11.0 - Nausea Status: Acute Assessment and Plan: Patient has history of diabetes on metformin, complained of nausea abdominal pain. GI consult. Reglan 5 mg IV every 6 hours for 4 doses. Pepcid 20 mg IV twice a day. Hold metformin. Blood sugar control goal blood sugar less than 180. Subjective Date/time seen: 04/13/21 09:38 Interval history: Patient seen and examined Patient feels weak she is complaining of abdominal pain and nausea. Surgery recommendation appreciated. Plan for GI evaluation. With history of diabetes patient at high risk for gastroparesis, started on Reglan for 4 doses and also started on Pepcid. Had cholecystectomy on 04/11/2021. Patient denies fever headache chest pain shortness of breath. I am seeing the patient for abdominal pain. Exam Narrative: Exam Narrative: Alert Chest no wheeze crackles Abdomen n no rebound no guarding positive tenderness CVS S1 + S2 Lower extremity edema Objective Data Vital Signs Vital Signs: Vital Signs - 24 hr 04/12/21 12:00 04/12/21 14:00 04/12/21 22:01 Temperature 98.4 F 97.9 F 97.5 F L Pulse Rate 84 75 76 Pulse Rate [Monitor] Respiratory Rate 16 16 18 Blood
[2021-04-13 10:22] LABS: Lactic Acid Reflex 0.8 mmol/L (0.7-2.1)
[2021-04-13] MEDS: traMADol HCL (*CRX) 50 MG TABLET PO (10:23)
[2021-04-13] MEDS: METOCLOPRAMIDE HCL INJ 10 MG/2 ML VIAL 5 MG IV PUSH ×2 (11:46→17:44)
[2021-04-13 12:00] VITALS: BP 136/88; PULSE 78
[2021-04-13 12:24] LABS: Glucose Point of Care 102 mg/dl (65-105)
--- NOTE | 2021-04-13 12:42 | WPDGICN ---
Assessment and Plan Assessment and plan (1) Nausea: Code(s): R11.0 - Nausea Status: Acute Assessment and Plan: persistent symptom despite cholecystectomy, also had weight loss will proceed with egd tomorrow to assess if ulcer (last egd with large HH), she also says that has been using omeprazole (2) Epigastric pain: Code(s): R10.13 - Epigastric pain Status: Acute (3) Acute cholecystitis: Code(s): K81.0 - Acute cholecystitis Status: Acute Assessment and Plan: recent cholecystectomy (reviewed CT scan and abdominal ultrasound) (4) Urinary tract infection: Qualifiers: Hematuria presence: without hematuria Urinary tract infection type: acute cystitis Qualified Code(s): N30.00 - Acute cystitis without hematuria Code(s): N39.0 - Urinary tract infection, site not specified Status: Acute Assessment and Plan: on abx (5) Weight loss: Code(s): R63.4 - Abnormal weight loss Status: Acute Assessment and Plan: egd tomorrow (6) Generalized weakness: Code(s): R53.1 - Weakness Status: Acute (7) Hiatal hernia: Code(s): K44.9 - Diaphragmatic hernia without obstruction or gangrene Status: Acute (8) Alcoholism: Code(s): F10.20 - Alcohol dependence, uncomplicated Status: Acute Assessment and Plan: monitor for withdrawal thiamine, mvi GI Consult Note Consult date/time: 04/13/21 12:42 Reason for consult: n/v, weight loss HPI: Stephanie Fabian is a 70 year old female with history of hypertension, diabetes mellitus on metformin and chronic alcoholism (some history obtained from granddaughter and said that the patient routinely drinks herself to sleep each night). She came here with several weeks of nausea and dry heaving also weight loss, also had diffuse abdominal pain. Her last EGD in December of 2019 which demonstrated a large hiatal hernia, gastritis, and dyskinesia of the esophagus (by ), she says that last colonoscopy about 3 years ago. This time work up showed cholecystitis and underwent lap claudine but she is still having similar symptoms, also had increased urinary frequency and urgency over recent weeks and was started on antibiotics. CT scan a/p reviewed, large sliding hiatal hernia, cholelithiasis, chronic mild dilation of the common bile duct. Review of Systems Constitutional: Constitutional: Denies chills Eyes: Eyes: Denies blurry vision ENT: Reports Normal hearing present Cardiovascular: Cardiovascular: Denies chest pain Respiratory: Respiratory: Denies dyspnea Gastrointestinal: Gastrointestinal: Reports abdominal pain, Reports nausea and Reports vomiting Genitourinary: Genitourinary: Reports urinary urgency Musculoskeletal: Musculoskeletal: Denies neck pain Integumentary/Breasts: Skin/Breast: Denies dry skin Neurologic: Denies numbness Psychiatric: Psychiatric: Reports anxiety PMFSH Past Medical History Medical History (Updated 04/13/21 @ 12:48 by Fredis Anthony MD) Anxiety Arthritis Chronic GERD DDD (degenerative disc disease) Depression Diabetes Dysphagia Epigastric pain Essential hypertension Gastritis Hepatic abscess (~08/2019) Hiatal hernia large Hypercholesterolemia Macular degeneration Weight loss Surgical History Surgical History History of bilateral carpal tunnel release History of bladder suspension procedure History of colonoscopy with polypectomy History of dilation and curettage x3 Hx of appendectomy Hx of arthroscopy of left knee Hx of esophagogastroduodenoscopy (12/28/19) Gastritis, dyskinesia of esophagus, hiatal hernia Hx of total hysterectomy Family History Family History Mother Cerebrovascular accident Family history of malignant neoplasm Hypertension Coronary artery disease Depression w
[2021-04-13 14:00] VITALS: BP 112/67; PULSE 72; RESP 20; TEMP 36.8; O2SAT 99
[2021-04-13 16:00] VITALS: BP 128/89; PULSE 76
[2021-04-13 17:52] LABS: Glucose Point of Care 92 mg/dl (65-105)
[2021-04-13] MEDS: traZODone HCL 50 MG TABLET 300 MG PO (20:42)
[2021-04-13] MEDS: FAMOTIDINE 20 MG/2 ML VIAL IV PUSH (20:42)
[2021-04-14] MEDS: metroNIDAZOLE 500 MG/ISO 100ML 500 MG/100 ML BAG 100 MG IVPB ×3 (00:39→13:12)
[2021-04-14] MEDS: METOCLOPRAMIDE HCL INJ 10 MG/2 ML VIAL 5 MG IV PUSH ×2 (00:55→05:41)
[2021-04-14 01:08] LABS: Glucose Point of Care 100 mg/dl (65-105)
[2021-04-14] MEDS: SODIUM CHLORIDE 0.9% IV 1,000 ML 100 ML IV CONT ×2 (03:15→08:43)
--- NOTE | 2021-04-14 07:01 | WPDANESEPPF ---
Anes - Initial Pre Proc Eval Procedure: Operation date: 04/14/21 EGD Date/Time: 04/14/21 07:01 Surgeon: Bharathi Pre Op Diagnosis: nausea Patient Data Age: 70 Gender: F Height: 1.68 m Weight: 51.8 kg Last Vital Signs Temp 36.8 C 04/13/21 14:00 Pulse 76 04/13/21 16:00 Resp 20 04/13/21 14:00 BP 128/89 04/13/21 16:00 Pulse Ox 99 04/13/21 14:00 Allergies Allergy/AdvReac Type Severity Reaction Status Date / Time codeine Allergy Unknown Nausea and Verified 04/14/21 07:17 Vomiting morphine Allergy Unknown Headache Verified 04/14/21 07:17 Home Medications Medication Instructions Recorded Confirmed Type aspirin [Aspir-Low] 81 mg PO DAILY 12/25/19 04/10/21 History atorvastatin 40 mg PO DAILY 12/25/19 04/10/21 History losartan-hydrochlorothiazide 1 tablet PO DAILY 12/25/19 04/10/21 History magnesium oxide 400 mg PO DAILY 12/25/19 04/10/21 History metformin 500 mg PO BID 12/25/19 04/10/21 History omeprazole 40 mg PO BID 12/25/19 04/10/21 History sertraline 100 mg PO DAILY 12/25/19 04/10/21 History trazodone 300 mg PO HS 12/25/19 04/11/21 History Laboratory Tests 04/13/21 04/13/21 04/13/21 07:55 10:06 12:21 POC Capillary Glucose 81 mg/dl mg/dl 102 mg/dl mg/dl (65-105) (65-105) Lactic Acid 0.8 mmol/L mmol/L (0.7-2.1) 04/13/21 04/13/21 17:30 20:38 POC Capillary Glucose 92 mg/dl mg/dl 100 mg/dl mg/dl (65-105) (65-105) Lactic Acid Patient hx anesthesia problems: none Family hx anesthesia problems: none PMFSH Past Medical History Medical History (Updated 04/13/21 @ 12:48 by Fredis Anthony MD) Anxiety Arthritis Chronic GERD DDD (degenerative disc disease) Depression Diabetes Dysphagia Epigastric pain Essential hypertension Gastritis Hepatic abscess (~08/2019) Hiatal hernia large Hypercholesterolemia Macular degeneration Weight loss Surgical History Surgical History History of bilateral carpal tunnel release History of bladder suspension procedure History of colonoscopy with polypectomy History of dilation and curettage x3 Hx of appendectomy Hx of arthroscopy of left knee Hx of esophagogastroduodenoscopy (12/28/19) Gastritis, dyskinesia of esophagus, hiatal hernia Hx of total hysterectomy Family History Family History Mother Cerebrovascular accident Family history of malignant neoplasm Hypertension Coronary artery disease Depression with suicidal ideation Sibling Overdose sister Breast cancer sister Heart disease brother Thyroid cancer Tuberculosis Daughter Brain cancer Social History Social History Social History: The patient is and lives with 1 of her sons. She raised 5 children. One of her daughters of complications of her brain tumor. She was a homemaker. She has smoked less than a pack of cigarettes per day since she was a teenager. She quit smoking in the last couple of months. She adamantly denied alcohol use but her niece reported that the patient drinks heavily each night. The niece does not want the patient to know that she has told staff about her alcohol use. Primary care physician: Dr. Romulo Lipscomb Code status: Full code per EMR however patient previously told healthcare providers that she wanted to be a DNR. Surrogate decision maker: Naila Ale (grandchild) Smoking packs per day: 0.15 Smoking cigarettes per day: 3.0 Years smoked: 56 Smoking pack-years: 8.40 Smoking status: Former smoker Tobacco type: cigarettes Second hand tobacco smoke exposure: Yes Smoking end date: 11/15/03 Alcohol intake: current Drinks per week: 5 Substance use: current Substance use type: marijuana Last use: 04/10/2021 Gender identity (if verbalized by
[2021-04-14 07:19] VITALS: BP 129/71; PULSE 83; RESP 18; TEMP 37.2; O2SAT 96
[2021-04-14] MEDS: LACTATED RINGERS 1,000 ML 150 ML IV CONT (07:23)
[2021-04-14] MEDS: BENZOCAINE (*SP) 60 ML SPRAY CAN (HURRICAINE) 1 SPRAY MUCOUS MEM (07:35)
[2021-04-14 07:45] VITALS: BP 119/75; PULSE 72; RESP 20; O2SAT 98
[2021-04-14 07:55] VITALS: BP 125/71; PULSE 73; RESP 23; O2SAT 98
[2021-04-14 08:05] VITALS: BP 127/77; PULSE 72; RESP 23; O2SAT 95
[2021-04-14] MEDS: ATORVASTATIN 40 MG TABLET PO (08:45)
[2021-04-14] MEDS: LOSARTAN POTASSIUM 50 MG TABLET PO (08:45)
[2021-04-14] MEDS: THIAMINE HCL 100 MG TABLET PO (08:45)
[2021-04-14] MEDS: MAGNESIUM OXIDE 400 MG TABLET PO (08:45)
[2021-04-14] MEDS: PANTOPRAZOLE SODIUM IV 40 MG VIAL IV PUSH (08:46)
[2021-04-14] MEDS: ASPIRIN 81 MG ENTERIC TABLET PO (08:46)
[2021-04-14] MEDS: SERTRALINE HCL 50 MG TABLET 100 MG PO (08:46)
[2021-04-14] MEDS: FOLIC ACID 1 MG TABLET PO (08:46)
[2021-04-14] MEDS: FAMOTIDINE 20 MG/2 ML VIAL IV PUSH (08:46)
[2021-04-14 08:50] LABS: Glucose Point of Care 88 mg/dl (65-105)
[2021-04-14] MEDS: traMADol HCL (*CRX) 50 MG TABLET PO (09:02)
[2021-04-14] MEDS: ONDANSETRON INJ 4 MG/2 ML VIAL IV PUSH (09:02)
[2021-04-14 09:24] LABS: Basophils Absolute Auto 0.1 K/mm3 (0.0-0.1); Basophils Percent Auto 0.8 % (0.2-1.2); Eosinophils Absolute Auto 0.2 K/mm3 (0-0.3); Eosinophils Percent Auto 2.1 % (0-4.4); Hematocrit 35.9 % (37.0-47.0); Immature Granulocyte Absolute 0.02 K/mm3 (0.00-0.031); Immature Granulocyte Percent A 0.3 % (0-0.5); Lymphocytes Absolute Auto 1.51 K/mm3 (0.9-3.2); Lymphocytes Percent Auto 19.6 % (18.3-44.2); Mean Corpuscular HGB Conc 33.4 g/dl (32-36); Mean Corpuscular Hemoglobin 32.6 pg (26-34); Mean Corpuscular Volume 97.6 fl (80-100); Monocytes Absolute Auto 0.6 K/mm3 (0.1-0.6); Neutrophils Absolute Auto 5.3 K/mm3 (1.3-6.7); Neutrophils Percent Auto 69.2 % (45.5-73.1); Platelet Count Result 277 k/mm3 (150-375); Red Blood Count 3.68 M/mm3 (4.2-5.4); Red Cell Distribution Width 12.9 % (11.5-14.5); White Blood Count 7.7 K/mm3 (4.5-10.0)
[2021-04-14 09:50] LABS: Alanine Aminotransferase 25 U/L (4-35); Albumin Level 3.3 g/dL (3.5-5.1); Alkaline Phosphatase 55 U/L (38-126); Anion Gap 7 mmol/L (8-16); Aspartate Amino Transferase 63 U/L (14-36); Bilirubin,Total 0.4 mg/dL (0.2-1.3); Blood Urea Nitrogen 3 mg/dL (7-17); Calcium 8.8 mg/dL (8.4-10.2); Carbon Dioxide 29 mmol/L (22-30); Chloride 105 mmol/L (98-107); Estimated CRCL calculation 60 ml/min; Estimated Glomerular Filt Rate > 60; Glucose 93 mg/dL (65-105); Potassium 3.2 mmol/L (3.4-5.0); Sodium 141 mmol/L (137-145)
[2021-04-14 12:14] LABS: Glucose Point of Care 145 mg/dl (65-105)
--- NOTE | 2021-04-14 13:27 | PM.DS ---
DS: Admitting Diagnosis Admitting Diagnosis Admitting Diagnosis: abdominal pain DS: Discharge Diagnosis Discharge Diagnosis (1) Acute cholecystitis: Code(s): K81.0 - Acute cholecystitis Status: Acute Assessment and Plan: RUQ US showed cholelithiasis with gallbladder wall thickening, biliary dilatation and positive sonographic Peguero sign consistent with acute cholecystitis. She is s/p laparoscopic cholecystectomy performed today by Dr. Stoner. General surgery recommendation appreciated patient will be discharged her antibiotics advanced diet as tolerated to diabetic diet Analgesics and antiemetics available as needed follow-up with surgeon in 1 week (2) Urinary tract infection: Qualifiers: Hematuria presence: without hematuria Urinary tract infection type: acute cystitis Qualified Code(s): N30.00 - Acute cystitis without hematuria Code(s): N39.0 - Urinary tract infection, site not specified Status: Acute Assessment and Plan: Urinalysis grossly abnormal upon presentation. patient will be discharged on oral antibiotic Follow urine culture results (3) Alcoholism: Code(s): F10.20 - Alcohol dependence, uncomplicated Status: Acute Assessment and Plan: Her granddaughter reports nightly alcohol use, though the patient denies alcohol use for many weeks. CIWA score as high as 19 today. Last CIWA was 9. No known history of alcohol withdrawal. Initiate thiamine and folic acid Encourage alcohol cessation (4) Essential hypertension: Code(s): I10 - Essential (primary) hypertension Status: Inactive Assessment and Plan: Blood pressures reviewed. Stable Continue losartan Monitor BP trends (5) Diabetes: Code(s): E11.9 - Type 2 diabetes mellitus without complications Status: Acute Assessment and Plan: Blood sugars are well controlled follow-up with PCPl metformin A1c (6) Depression: Qualifiers: Depression Type: major depressive disorder Major depression recurrence: recurrent Active/Remission status: currently active Major depression episode severity: moderate Qualified Code(s): F33.1 - Major depressive disorder, recurrent, moderate Code(s): F32.9 - Major depressive disorder, single episode, unspecified Status: Acute Assessment and Plan: The patient does seem to be at least moderately depressed and would benefit from adjustments in her antidepressants as outpatient. It appears that the patient's trazodone was recently increased on 04/05/2021 to 300 mg nightly. Continue trazodone (7) Nausea: Code(s): R11.0 - Nausea Status: Acute Assessment and Plan: most likely related to gastritis continue PPI follow-up with GI as outpatient status post endoscopy. DS: Summary Hospital Course Hospital Course: patient was admitted to the hospital with abdominal pain was found to have acute cholecystitis and UTI treated with antibiotic surgery was consulted patient has cholecystectomy patient after procedure continued to have nausea GI was consulted endoscopy was done showed gastritis biopsies pending patient will be discharged on PPI follow-up with surgery and GI as outpatient Time Spent with Patient Time attestation: Total time spent providing and/or coordinating discharge services: Exam Narrative: Exam Narrative: Alert Chest no wheeze crackles Abdomen n no rebound no guarding positive tenderness CVS S1 + S2 Lower extremity edema DS: Data Data Completed and Pending Pending studies at discharge: Pending at discharge 04/11/21 11:10 Surgical [PTH] Routine 04/14/21 07:43 Surgical [PTH] Routine Labs on day of discharge: Labs from last 24 hours 04/14/21 04/14/21 04/14/21 12:10 09:12 09:12 WBC 7.7 RBC 3.68 L Hgb 12.0 Hct 35.9 L MCV 97.6 MCH 32.6 MCHC 33.4 RDW 12.9 Plt Count
[2021-04-14 14:00] VITALS: BP 114/58; PULSE 57; RESP 18; TEMP 36.6; O2SAT 99
[2021-04-15 14:07] LABS: Glucose Point of Care 96 mg/dl (65-105)
== END 2021-04-14 15:30 | disposition home or self-care (01) | DRG 418 ==
LOC: ANHED 11:56 → ANH3MEDSUR 18:07
PROVIDERS: Internal Medicine; Internal Medicine Gastroenterology; Physician Assistant; Surgery; Admitting Provider Family Medicine; Emergency Provider Emergency Medicine; PCP Family Medicine; Visit Provider Internal Medicine
PROC: 0FT44ZZ Resection of Gallbladder, Percutaneous Endoscopic Approach (ICD-10-PCS; CPT 47562; principal; 2021-04-11 10:00)
PROC: 0DJ08ZZ Inspection of Upper Intestinal Tract, Via Natural or Artificial Opening Endoscopic (ICD-10-PCS; CPT 43235; principal; 2021-04-14 07:30)
DX: K80.00 Calculus of gallbladder with acute cholecystitis without obstruction (principal); N30.00 Acute cystitis without hematuria; Z68.1 Body mass index [BMI] 19.9 or less, adult; F33.1 Major depressive disorder, recurrent, moderate; K83.8 Other specified diseases of biliary tract; F41.9 Anxiety disorder, unspecified; M19.90 Unspecified osteoarthritis, unspecified site; K21.9 Gastro-esophageal reflux disease without esophagitis; E11.9 Type 2 diabetes mellitus without complications; K44.9 Diaphragmatic hernia without obstruction or gangrene; I10 Essential (primary) hypertension; Z86.010 Personal history of colon polyps; E78.00 Pure hypercholesterolemia, unspecified; Z87.891 Personal history of nicotine dependence; N28.89 Other specified disorders of kidney and ureter; F10.20 Alcohol dependence, uncomplicated; Y90.9 Presence of alcohol in blood, level not specified; R63.4 Abnormal weight loss; K29.70 Gastritis, unspecified, without bleeding; Z79.84 Long term (current) use of oral hypoglycemic drugs
CPT/HCPCS: 36415; 71046; 74177; 76705; 80048; 80053; 80307; 81001; 82948; 83036; 83605; 83690; 83735; 84484; 85025; 85027; 87040; 87077; 87086; 87088; 87186; 88304; 88305; 93005; 96361; 96365; 96366; 96367; 96368; 96375; 97162; 97165; 97530; 99285; A9270; C9113; G0378; J0131; J0696; J1956; J2250; J2405; J2704; J2710; J2765; J7030; J7120; Q9967

== ENCOUNTER → 2021-08-02 08:00 | Outpatient (CLI) | payer MEDICARE, SELFPAY ==
[2021-08-02 18:08] LABS: SARS-CoV-2 RNA PCR Negative
== END ==
PROVIDERS: PCP Family Medicine; Visit Provider Internal Medicine Gastroenterology
DX: Z01.812 Encounter for preprocedural laboratory examination (principal); Z20.822 Contact with and (suspected) exposure to COVID-19
CPT/HCPCS: C9803; U0003; U0005

== ENCOUNTER 2021-08-04 08:08 | Observation (INO) | payer MEDICARE, SELFPAY ==
[2021-08-04] VITALS (18 sets, daily range): BP systolic 99–139; BP diastolic 45–86; PULSE 40–95; RESP 12–22; TEMP 36.4–36.7; O2SAT 95–100; BMI 18.3
--- NOTE | ~2021-08-04 | CT_ITS ---
EXAMINATION: CT abdomen pelvis w con EXAM DATE: 08/04/2021 09:32 INDICATION: Epigastric pain, nausea vomiting, diarrhea. TECHNIQUE: Spiral CT of the abdomen and pelvis was performed following intravenous injection of 100 m L Omnipaque 350. Axial, coronal and sagittal images of the abdomen and pelvis were reviewed. The do se-length product (DLP) for this examination was 262.47 mGy-cm. The exposure was tailored according to patient size (auto mA exposure control), and iterative reconstruction (ASIR) was used as additiona l dose reduction technique. Comparison is made to prior examination from 04/10/2021. FINDINGS: The liver, spleen, adrenal glands and pancreas are unremarkable. There are cholecystectomy clips. Some biliary dilation, common finding post cholecystectomy. There is a 2 cm exophytic left re nal lesion consistent with cyst. Portal and splenic veins are patent. Kidneys enhance symmetrically . There is no hydronephrosis. The uterus is not identified and has likely been surgically resected . Low pelvic floor, evidence of some pelvic prolapse. The bladder is unremarkable. There is no retr operitoneal or pelvic lymphadenopathy. There is sigmoid colon wall thickening probably edema from colitis. Adenocarcinoma less likely. Mild to moderate scattered colonic diverticulosis without adjacent inflammation. There are no findings to suggest appendicitis. The stomach and small bowel are unremarkable. There is colonic fluid, correla te for diarrhea. No free intraperitoneal gas. Small pericardial effusion. L Lung bases demonstrat es hyperinflation. No focal basilar airspace disease. There are no osteoblastic or osteolytic lesion s identified. IMPRESSION: 1. Sigmoid colonic wall thickening, could indicate colitis. Adenocarcinoma less likely. Colonic flui d, diarrhea. 2. Some amount of pelvic prolapse. 3. Scattered colonic diverticulosis. Reviewed, dictated and finalized at location B. IMPRESSION: 1. Sigmoid colonic wall thickening, could indicate colitis. Adenocarcinoma les s likely. Colonic fluid, diarrhea. 2. Some amount of pelvic prolapse. 3. Scattered colonic diverticulosis.
[2021-08-04 08:40] LABS: Basophils Absolute Auto 0.1 K/mm3 (0.0-0.1); Basophils Percent Auto 0.4 % (0.2-1.2); Eosinophils Absolute Auto 0.1 K/mm3 (0-0.3); Eosinophils Percent Auto 0.4 % (0-4.4); Hematocrit 36.4 % (37.0-47.0); Hemoglobin 12.5 g/dL (12.0-15.0); Immature Granulocyte Absolute 0.06 K/mm3 (0.00-0.031); Immature Granulocyte Percent A 0.4 % (0-0.5); Lymphocytes Absolute Auto 1.37 K/mm3 (0.9-3.2); Lymphocytes Percent Auto 8.8 % (18.3-44.2); Mean Corpuscular HGB Conc 34.3 g/dl (32-36); Mean Corpuscular Hemoglobin 33.2 pg (26-34); Mean Corpuscular Volume 96.8 fl (80-100); Mean Platelet Volume 10.8 fl (7.4-10.4); Monocytes Absolute Auto 0.5 K/mm3 (0.1-0.6); Monocytes Percent Auto 3.3 % (2.6-8.5); Neutrophils Absolute Auto 13.5 K/mm3 (1.3-6.7); Neutrophils Percent Auto 86.7 % (45.5-73.1); Platelet Count Result 314 k/mm3 (150-375); Red Blood Count 3.76 M/mm3 (4.2-5.4); Red Cell Distribution Width 12.8 % (11.5-14.5); White Blood Count 15.6 K/mm3 (4.5-10.0)
[2021-08-04 08:49] LABS: Alanine Aminotransferase 14 U/L (4-35); Albumin Level 4.6 g/dL (3.5-5.1); Alkaline Phosphatase 104 U/L (38-126); Anion Gap 9 mmol/L (8-16); Aspartate Amino Transferase 32 U/L (14-36); Bilirubin,Total 0.5 mg/dL (0.2-1.3); Blood Urea Nitrogen 15 mg/dL (7-17); Calcium 10.1 mg/dL (8.4-10.2); Carbon Dioxide 31 mmol/L (22-30); Chloride 94 mmol/L (98-107); Estimated CRCL calculation 35 ml/min; Estimated Glomerular Filt Rate 55; Glucose 107 mg/dL (65-110); Lipase 133 U/L (23-300); Potassium 3.5 mmol/L (3.4-5.0); Sodium 134 mmol/L (137-145)
[2021-08-04 09:01] LABS: Add Urine Microscopic? YES; Appearance Urine Clear (Clear); Bilirubin Urine Negative (Negative); Blood Urine Negative (Negative); Color Urine Yellow (Yellow); Glucose Urine UA Negative (Negative); Ketones Urine Negative (Negative); Leukocyte Esterase Ur 1+ LEU/UL (Negative); Nitrate Urine Negative (Negative); Protein Urine 1+ mg/dL (Negative); RBC Urine 0-2 /hpf (0-2); Specific Grav Ur 1.013 (1.001-1.035); Squamous Epithelial Cell Urine Occasional /hpf (Few); Urobilinogen Urine Negative mg/dL (<2.0)
[2021-08-04] MEDS: ONDANSETRON INJ 4 MG/2 ML VIAL IV PUSH ×2 (09:17→20:31)
[2021-08-04] MEDS: fentaNYL CITRATE INJ (*CRX) 100 MCG/2 ML VIAL 25 MCG IV PUSH (09:17)
[2021-08-04] MEDS: SODIUM CHLORIDE 0.9% IV 1,000 ML 999 ML IV CONT (09:17)
--- NOTE | 2021-08-04 12:11 | ED.NAVMDI ---
HPI - Nausea/Vomiting/Diarrhea General Chief complaint: Nausea/Vomiting/Diarrhea Stated complaint: Vomiting/Diarrhea/Weakness Time Seen by Provider: 08/04/21 08:14 History of Present Illness HPI Narrative: Patient is a 71-year-old female who presents ER with multiple complaints. Patient presented to the ED today after being too weak to undergo her gastric emptying study. After waking up patient has been feeling dizzy and weak where she cannot stand or walk. She had recently been using MiraLAX to clear out her bowels because she has a colonoscopy scheduled for tomorrow. Patient reports chronic abdominal discomfort with intermittent nausea and diarrhea that has led her to require this evaluation. She is supposed to see Dr. Anthony. No fevers or chills or sweats. No loss of consciousness. No blood in stool. No fevers or chills. She reports she has history of hiatal hernia. Related Data Home Medications Medication Instructions Recorded Confirmed aspirin [Aspir-Low] 81 mg PO DAILY 12/25/19 08/04/21 atorvastatin 40 mg PO DAILY 12/25/19 08/04/21 losartan-hydrochlorothiazide 1 tablet PO DAILY 12/25/19 08/04/21 magnesium oxide 400 mg PO DAILY 12/25/19 08/04/21 metformin 500 mg PO BID 12/25/19 08/04/21 omeprazole 40 mg PO BID 12/25/19 08/04/21 sertraline 200 mg PO DAILY 12/25/19 08/04/21 trazodone 300 mg PO HS 12/25/19 08/04/21 ascorbic acid (vitamin C) 500 mg PO DAILY 07/24/21 08/04/21 cholecalciferol (vitamin D3) 25 mcg PO DAILY 07/24/21 08/04/21 [Vitamin D3] ferrous sulfate 325 mg PO DAILY 07/24/21 08/04/21 vitamin B complex 1 tablet PO DAILY 07/24/21 08/04/21 Allergies Allergy/AdvReac Type Severity Reaction Status Date / Time codeine AdvReac Unknown Nausea and Verified 08/04/21 14:58 Vomiting morphine AdvReac Unknown Headache Verified 08/04/21 14:58 [facility] Past Medical History Medical History (Updated 08/04/21 @ 16:48 by Oc Pascual MD) Abnormal CT scan, colon Anxiety Arthritis Chronic GERD Degenerative disc disease Depression Essential hypertension Gastritis (03/2021) Hepatic abscess (08/2019) History of colon polyps Hypercholesterolemia Iron deficiency anemia Large hiatal hernia Macular degeneration Pelvic prolapse Pre-diabetes Hemoglobin A1c was 5.2% on 04/10/2021. Surgical History Surgical History (Updated 08/04/21 @ 14:34 by Heide Ennis PA-C) History of appendectomy History of arthroscopy of left knee History of bilateral carpal tunnel release History of bladder suspension procedure History of cholecystectomy History of colonoscopy with polypectomy History of dilation and curettage x3 History of esophagogastroduodenoscopy 12/28/2019: Gastritis, dyskinesia of esophagus, hiatal hernia. 04/14/2021: Gastritis and large hiatal hernia measuring 5 cm. History of total hysterectomy Family History Family History Mother Cerebrovascular accident Family history of malignant neoplasm Hypertension Coronary artery disease Depression with suicidal ideation Sibling Overdose sister Breast cancer sister Heart disease brother Thyroid cancer Tuberculosis Daughter Brain cancer Social History Social History (Updated 08/04/21 @ 14:39 by Heide Ennis PA-C) Social History: The patient is and lives with 1 of her sons in [place]. 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 One of her daughters of complications of a brain tumor. She has smoked less than a pack of cigarettes per day since she was a teenager and quit earlier this year. She adamantly denies alcohol use but her niece reported that the patient drinks heavily each night. The niece does not want the patient to know that she has told staff about her alcohol use. She designates her granddaughter, Naila Mason, as her surrogate decision maker. Code status: Smoking packs per day: 0.5 Smoking cigarettes per da
--- NOTE | 2021-08-04 14:30 | PM.IMHP ---
H&P: HPI History of Present Illness Date/Time: 08/04/21 14:30 Chief Complaint: Nausea, vomiting, diarrhea. Narrative: This is a 71-year-old female with hypertension, hyperlipidemia, and diabetes who presented to the emergency department earlier today for evaluation of nausea, vomiting, and diarrhea. She reports ongoing GI issues including bloating, abdominal fullness, nausea, and vomiting for many months. In fact she was admitted to the hospitalist service and March 2021 with similar complaints and an unintentional 40 lb weight loss. Right upper quadrant ultrasound was consistent with acute cholecystitis for which she underwent laparoscopic cholecystectomy. An EGD was also done per Dr. Anthony which showed a large hiatal hernia of 5 cm as well as mild gastritis. She was seen by Dr. Anthony in the office on 07/10/2021 with continued nausea after eating and generalized abdominal discomfort. She was scheduled for a gastric emptying study today and upon presentation she was extremely weak and was directed to the emergency department. Patient tells me she is also been taking MiraLax in anticipation of a colonoscopy tomorrow. CT of the abdomen and pelvis done in the emergency department today showed sigmoid colonic wall thickening which could indicate colitis and she is being admitted in this setting. At the time my evaluation she tells me she does feels ?worn to the bone? due to poor appetite and decreased oral intake. She has not had fever. No sick contacts or recent antibiotic use. Review of Systems Review of Systems: Twelve systems were reviewed with pertinent positives and negatives as per HPI. She gets frequent night sweats and then she will be chilled thereafter, this is not a new finding. No cold or flu symptoms. She denies chest pain shortness of breath. No cough. No hematemesis, melena, or hematochezia. Denies dysuria but reports urinary incontinence. Except as documented, all other systems were reviewed and are negative. [facility] Past Medical History Medical History (Updated 08/05/21 @ 00:03 by Heide Ennis PA-C) Anxiety Arthritis Chronic GERD Degenerative disc disease Depression Essential hypertension Gastritis (03/2021) Hepatic abscess (08/2019) History of colon polyps Hypercholesterolemia Iron deficiency anemia Large hiatal hernia Macular degeneration Pelvic prolapse Pre-diabetes Hemoglobin A1c was 5.2% on 04/10/2021. Surgical History Surgical History (Updated 09/20/21 @ 14:34 by Heide Ennis PA-C) History of appendectomy History of arthroscopy of left knee History of bilateral carpal tunnel release History of bladder suspension procedure History of cholecystectomy History of colonoscopy with polypectomy History of dilation and curettage x3 History of esophagogastroduodenoscopy 12/28/2019: Gastritis, dyskinesia of esophagus, hiatal hernia. 04/14/2021: Gastritis and large hiatal hernia measuring 5 cm. History of total hysterectomy Family History Family History Mother Cerebrovascular accident Family history of malignant neoplasm Hypertension Coronary artery disease Depression with suicidal ideation Sibling Overdose sister Breast cancer sister Heart disease brother Thyroid cancer Tuberculosis Daughter Brain cancer Social History Social History Social History: The patient is and lives with 1 of her sons in [place]. 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 One of her daughters of complications of a brain tumor. She has smoked less than a pack of cigarettes per day since she was a teenager and quit earlier this year. She adamantly denies alcohol use but her niece reported that the patient drinks heavily each night. The niece does not want the patient to know that she has told staff about her alcohol use. She designates her grandda
--- NOTE | 2021-08-04 14:40 | ADMGEN ---
This patient, Stephanie Fabian, was admitted to Medical Room 245-. Patient/family oriented to hospital policies and general routines including ID bracelet, bed and alarms, visiting hours, pain management, procedures, bathroom and other care routines, personal items, smoking policy, room service/diet, and visiting hours. Information on how to activate the Rapid Response Team has been discussed. Patient/Family are encouraged to report perceived risks to care and to ask questions if they do not understand what they are told or what they should do.
[2021-08-04] MEDS: LACTATED RINGERS 1,000 ML 75 ML IV CONT (15:34)
--- NOTE | 2021-08-04 16:36 | WPDGICN ---
Assessment and Plan Assessment and plan (1) Abnormal CT scan, colon: Code(s): R93.3 - Abnormal findings on diagnostic imaging of other parts of digestive tract Status: Acute Assessment and Plan: differential diagnosis is colitis, can not rule out other lesion will complete colonoscopy tomorrow, will give more prep (she says that could not keep much of the prep that started earlier around 3am)- liquid stool but brown, will give also antiemetics prn (2) Colitis: Code(s): K52.9 - Noninfective gastroenteritis and colitis, unspecified Status: Acute Assessment and Plan: on abx, will assess with colonoscopy to see if evidence of inflammation (3) Incontinence: Code(s): R32 - Unspecified urinary incontinence Status: Acute (4) Dehydration: Code(s): E86.0 - Dehydration Status: Acute Assessment and Plan: hydration (5) Alcoholism: Code(s): F10.20 - Alcohol dependence, uncomplicated Status: Acute Assessment and Plan: denies drinking anymore (6) Hiatal hernia: Code(s): K44.9 - Diaphragmatic hernia without obstruction or gangrene Status: Acute (7) Nausea: Code(s): R11.0 - Nausea Status: Acute Assessment and Plan: will need to complete GES as outpatient GI Consult Note Consult date/time: 08/04/21 16:36 HPI: Stephanie Fabian is a 71 year old female who is supposed to have a colonoscopy tomorrow with me as outpatient. I have seen her previously after she was in the hospital with nausea, weight loss that prompted a diagnosis of cholecystitis, underwent lap claudine but still symptomatic then I performed EGD that showed large hiatal hernia of 5 cm and mild gastritis. She got confused about bowel prep instructions and started drinking her bowel prep around 3am then just feeling drowsy with more nausea and was unable to drink much. Family noted that she has weak and came to ER. She also has history of hypertension, diabetes mellitus and chronic alcoholism (when she was in the hospital, her niece mentioned that the patient routinely was drinking to sleep each night- per notes she did not want the staff share this info with patient)- patient denies alcohol use now. CT scan showed cigmoid colonic wall thickening, could indicate colitis. Adenocarcinoma less likely. Colonic fluid, diarrhea. Also had leukocytosis and started on antibiotics. Review of Systems Constitutional: Constitutional: Reports weakness Eyes: Eyes: Denies blurry vision ENT: Reports Normal hearing present Cardiovascular: Cardiovascular: Denies chest pain Respiratory: Respiratory: Denies dyspnea Gastrointestinal: Gastrointestinal: Reports abdominal pain and Reports nausea Genitourinary: Genitourinary: Denies hematuria Musculoskeletal: Musculoskeletal: Denies neck pain Integumentary/Breasts: Skin/Breast: Denies dry skin Neurologic: Denies headache(s) Psychiatric: Psychiatric: Denies behavioral changes [facility] Past Medical History Medical History (Updated 08/04/21 @ 16:41 by Fredis Anthony MD) Abnormal CT scan, colon Anxiety Arthritis Chronic GERD Degenerative disc disease Depression Essential hypertension Gastritis (03/2021) Hepatic abscess (08/2019) History of colon polyps Hypercholesterolemia Iron deficiency anemia Large hiatal hernia Macular degeneration Pelvic prolapse Pre-diabetes Hemoglobin A1c was 5.2% on 04/10/2021. Surgical History Surgical History (Updated 08/04/21 @ 14:34 by Heide Ennis PA-C) History of appendectomy History of arthroscopy of left knee History of bilateral carpal tunnel release History of bladder suspension procedure History of cholecystectomy History of colonoscopy with polypectomy History of dilation and curettage x3 History of esophagogastroduodenoscopy 12/28/2019: Gastritis, dyskinesia of esophagus, hiatal hernia. 04/14/2021: Gastritis and large hiatal hernia measuring 5 cm.
[2021-08-04 16:52] LABS: Glucose Point of Care 115 mg/dl (65-105)
[2021-08-04] MEDS: BISACODYL 5 MG TABLET EC 20 MG PO (17:21)
[2021-08-04] MEDS: polyethylene glycoL 3350 238 GM BOTTLE PO (17:22)
[2021-08-05] VITALS (14 sets, daily range): BP systolic 100–112; BP diastolic 56–74; PULSE 54–74; RESP 18–24; TEMP 35.6–36.9; O2SAT 97–100; BMI 18.7
[2021-08-05] MEDS: ONDANSETRON INJ 4 MG/2 ML VIAL IV PUSH (01:13)
[2021-08-05] MEDS: traZODone HCL 50 MG TABLET 300 MG PO ×2 (01:29→21:00)
[2021-08-05 05:43] LABS: Hematocrit 31.2 % (37.0-47.0); Hemoglobin 10.7 g/dL (12.0-15.0); Mean Corpuscular HGB Conc 34.3 g/dl (32-36); Mean Corpuscular Hemoglobin 33.8 pg (26-34); Mean Corpuscular Volume 98.4 fl (80-100); Mean Platelet Volume 10.9 fl (7.4-10.4); Platelet Count Result 243 k/mm3 (150-375); Red Blood Count 3.17 M/mm3 (4.2-5.4); Red Cell Distribution Width 12.6 % (11.5-14.5); White Blood Count 8.2 K/mm3 (4.5-10.0)
[2021-08-05 06:06] LABS: Alanine Aminotransferase 12 U/L (4-35); Albumin Level 3.6 g/dL (3.5-5.1); Alkaline Phosphatase 74 U/L (38-126); Anion Gap 6 mmol/L (8-16); Aspartate Amino Transferase 36 U/L (14-36); Bilirubin,Total 0.4 mg/dL (0.2-1.3); Blood Urea Nitrogen 9 mg/dL (7-17); Calcium 8.8 mg/dL (8.4-10.2); Carbon Dioxide 28 mmol/L (22-30); Chloride 99 mmol/L (98-107); Estimated CRCL calculation 44 ml/min; Estimated Glomerular Filt Rate > 60; Glucose 85 mg/dL (65-110); Magnesium 1.5 mg/dL (1.6-2.3); Potassium 3.2 mmol/L (3.4-5.0); Sodium 133 mmol/L (137-145)
[2021-08-05] MEDS: LACTATED RINGERS 1,000 ML 75 ML IV CONT (08:04)
--- NOTE | 2021-08-05 09:16 | PM.IMPN ---
Progress Note: A&P Assessment and Plan (1) Colitis: Code(s): K52.9 - Noninfective gastroenteritis and colitis, unspecified Status: Acute Assessment and Plan: Patient has been started on Zosyn for possible infectious colitis. She completed prep last night and will undergo colonoscopy today. She is NPO at this time. Appreciate GI recommendations. Analgesics and antiemetics available as needed. (2) Weight loss: Code(s): R63.4 - Abnormal weight loss Status: Acute Assessment and Plan: An ongoing issue over the last year, reportedly 40 lb weight loss. Rule out malignancy by colonoscopy, scheduled for today. May be due to poor caloric intake as patient and daughter report that she is rarely able to eat due to GI symptoms. (3) Dehydration: Code(s): E86.0 - Dehydration Status: Acute Assessment and Plan: Secondary to poor p.o. intake. Continue gentle IV fluids while NPO. Discontinue fluids when she is tolerating p.o. intake. (4) Generalized weakness: Code(s): R53.1 - Weakness Status: Acute Assessment and Plan: Secondary to dehydration and acute illness. She feels unsteady on her feet. Anticipate improvement with treatment plan as above. Appreciate PT/OT eval. Fall precautions implemented. (5) Essential hypertension: Code(s): I10 - Essential (primary) hypertension Status: Chronic Assessment and Plan: Blood pressures were reviewed and have been well controlled with some readings on the low end of normal. Antihypertensives on hold while NPO. Monitor blood pressures trends and resume medications as appropriate. (6) Chronic GERD: Code(s): K21.9 - Gastro-esophageal reflux disease without esophagitis Status: Acute Assessment and Plan: Continue PPI. (7) Iron deficiency anemia: Code(s): D50.9 - Iron deficiency anemia, unspecified Status: Acute Assessment and Plan: Hemoglobin and hematocrit have been within normal limits since March of this year. Hemoglobin with downward trend to 10.7 today, suspect this is dilutional. She has been taking ferrous sulfate 325 mg daily which could be a contributing factor to her GI symptoms thus may consider holding. Appreciate further GI recommendations. (8) Pre-diabetes: Code(s): R73.03 - Prediabetes Status: Acute Assessment and Plan: A1c was 5.2% in March 2021. Metformin could also be playing a role in her GI symptoms and has been held. (9) Tobacco abuse: Code(s): Z72.0 - Tobacco use Status: Acute Assessment and Plan: She reports smoking 5 cigarettes per day. Her daughter reports she sometimes smokes a half a pack a day. She declines need for nicotine patch at this time. Smoking cessation is imperative and will be discussed at length. (10) Alcoholism: Code(s): F10.20 - Alcohol dependence, uncomplicated Status: Acute Assessment and Plan: Patient was reportedly drinking alcohol every night until she fell asleep. She reports that she has not drank in many weeks. Her daughter agrees that she has not had anything to drink in 1-2 weeks due to her inability to keep anything down. Will initiate thiamine and folic acid. Implement [facility] protocol to ensure no concerns for withdrawal, though I doubt this to be an issue if both patient and daughter are forthright with alcohol use. Chronic alcohol use could also contribute to GI upset. She will be educated on alcohol cessation. Additional Plan Potassium and magnesium are low, likely due to poor p.o. intake. Supplement with IV magnesium sulfate and IV potassium chloride. Subjective Date/time seen: 08/05/21 09:16 Interval history: Date of service: 08/05/2021 Stephanie Fabian is a 71 year old female with a history of hypertension, hyperlipidemia, macular degeneration, prediabetes, anxiety, and gastritis who is seen in follow-up for colit
[2021-08-05] MEDS: LACTATED RINGERS 1,000 ML 150 ML IV CONT (09:45)
[2021-08-05 09:49] LABS: Glucose Point of Care 87 mg/dl (65-105)
--- NOTE | 2021-08-05 10:01 | WPDANESEPPF ---
Anes - Initial Pre Proc Eval Procedure: Operation Date: 08/05/21 10:45 Proposed Procedures p Colonoscopy - Fredis Anthony MD Date/Time: 08/05/21 10:01 Surgeon: Rosalina Alvarez PA-C Pre Op Diagnosis: Colitis Patient Data Age: 71 Gender: F Height: 1.65 m Weight: 51.1 kg Last Vital Signs Temp 98.4 F 08/05/21 09:42 Pulse 74 08/05/21 09:42 Resp 20 08/05/21 09:42 BP 110/73 08/05/21 09:42 Pulse Ox 97 08/05/21 09:42 Allergies Allergy/AdvReac Type Severity Reaction Status Date / Time codeine AdvReac Unknown Nausea and Verified 08/04/21 14:58 Vomiting morphine AdvReac Unknown Headache Verified 08/04/21 14:58 Home Medications Medication Instructions Recorded Confirmed Type aspirin [Aspir-Low] 81 mg PO DAILY 12/25/19 08/04/21 History atorvastatin 40 mg PO DAILY 12/25/19 08/04/21 History losartan-hydrochlorothiazide 1 tablet PO DAILY 12/25/19 08/04/21 History magnesium oxide 400 mg PO DAILY 12/25/19 08/04/21 History metformin 500 mg PO BID 12/25/19 08/04/21 History omeprazole 40 mg PO BID 12/25/19 08/04/21 History sertraline 200 mg PO DAILY 12/25/19 08/04/21 History trazodone 300 mg PO HS 12/25/19 08/04/21 History folic acid 1 mg PO DAILY #60 tablet 04/14/21 08/04/21 Rx ondansetron HCl 4 mg tablet 4 mg PO Q8H PRN #90 tablet 07/10/21 08/04/21 Rx ascorbic acid (vitamin C) 500 mg PO DAILY 07/24/21 08/04/21 History cholecalciferol (vitamin D3) 25 mcg PO DAILY 07/24/21 08/04/21 History [Vitamin D3] ferrous sulfate 325 mg PO DAILY 07/24/21 08/04/21 History vitamin B complex 1 tablet PO DAILY 07/24/21 08/04/21 History Laboratory Tests 08/04/21 08/05/21 08/05/21 16:49 05:08 05:08 WBC 8.2 K/mm3 K/mm3 (4.5-10.0) RBC 3.17 M/mm3 L M/mm3 (4.2-5.4) Hgb 10.7 g/dL L g/dL (12.0-15.0) Hct 31.2 % L % (37.0-47.0) MCV 98.4 fl fl (80-100) MCH 33.8 pg pg (26-34) MCHC 34.3 g/dl g/dl (32-36) RDW 12.6 % % (11.5-14.5) Plt Count 243 k/mm3 k/mm3 (150-375) MPV 10.9 fl H fl (7.4-10.4) Sodium 133 mmol/L L mmol/L (137-145) Potassium 3.2 mmol/L L mmol/L (3.4-5.0) Chloride 99 mmol/L mmol/L (98-107) Carbon Dioxide 28 mmol/L mmol/L (22-30) Anion Gap 6 mmol/L L mmol/L (8-16) BUN 9 mg/dL D mg/dL (7-17) Creatinine 0.80 mg/dL mg/dL (0.7-1.0) Estim Creat Clear Calc 44 ml/min ml/min Estimated GFR > 60 (59 - ) Glucose 85 mg/dL mg/dL (65-110) POC Capillary Glucose 115 mg/dl H mg/dl (65-105) Hemoglobin A1c Calcium 8.8 mg/dL mg/dL (8.4-10.2) Magnesium 1.5 mg/dL L mg/dL (1.6-2.3) Ferritin Total Bilirubin 0.4 mg/dL mg/dL (0.2-1.3) AST 36 U/L U/L (14-36) ALT 12 U/L U/L (4-35) Alkaline Phosphatase 74 U/L U/L (38-126) Total Protein 6.0 g/dL L g/dL (6.3-8.2) Albumin 3.6 g/dL g/dL (3.5-5.1) TSH (Reflex) 08/05/21 08/05/21 08/05/21 05:08 05:08 09:38 WBC RBC Hgb Hct MCV MCH MCHC RDW Plt Count MPV Sodium Potassium Chloride Carbon Dioxide Anion Gap BUN Creatinine Estim Creat Clear Calc Estimated GFR Glucose POC Capillary Glucose 87 mg/dl mg/dl (65-105) Hemoglobin A1c 5.0 % % (<5.7) Calcium Magnesium Ferritin 100.00 ng/mL ng/mL (11.1-264) Total Bilirubin AST ALT Alkaline Phosphatase Total Protein Albumin TSH (Reflex) 3.330 uIU/mL uIU/mL (0.465-4.68)
--- NOTE | 2021-08-05 10:30 | WPDANESPN ---
Anes - Prog Note Post-Op Date/Time: 08/05/21 10:30 Cardiovascular status: normal Respiratory status: normal Airway patency: baseline Mental status: baseline Post-Op hydration status: normal Vital Signs: Last Vital Signs Temp 36.9 C 08/05/21 09:42 Pulse 74 08/05/21 09:42 Resp 20 08/05/21 09:42 BP 110/73 08/05/21 09:42 Pulse Ox 97 08/05/21 10:03 Pain Score (VAS): 0 I/O: Intake & Output 08/04/21 08/05/21 08/05/21 23:59 07:59 15:59 Intake Total 2270 1100 Balance 2270 1100 Laboratory Tests 08/05/21 05:08 08/05/21 05:08 08/04/21 08/05/21 08/05/21 16:49 05:08 05:08 WBC 8.2 RBC 3.17 L Hgb 10.7 L Hct 31.2 L MCV 98.4 MCH 33.8 MCHC 34.3 RDW 12.6 Plt Count 243 MPV 10.9 H Sodium 133 L Potassium 3.2 L Chloride 99 Carbon Dioxide 28 Anion Gap 6 L BUN 9 D Creatinine 0.80 Estim Creat Clear Calc 44 Estimated GFR > 60 Glucose 85 POC Capillary Glucose 115 H Hemoglobin A1c Calcium 8.8 Magnesium 1.5 L Ferritin Total Bilirubin 0.4 AST 36 ALT 12 Alkaline Phosphatase 74 Total Protein 6.0 L Albumin 3.6 TSH (Reflex) 08/05/21 08/05/21 08/05/21 05:08 05:08 09:38 WBC RBC Hgb Hct MCV MCH MCHC RDW Plt Count MPV Sodium Potassium Chloride Carbon Dioxide Anion Gap BUN Creatinine Estim Creat Clear Calc Estimated GFR Glucose POC Capillary Glucose 87 Hemoglobin A1c 5.0 Calcium Magnesium Ferritin 100.00 Total Bilirubin AST ALT Alkaline Phosphatase Total Protein Albumin TSH (Reflex) 3.330 Post-procedural complaints: none Patient Feedback: Patient satisfied with anesthetic care.
--- NOTE | 2021-08-05 11:20 | PCOTNOTE ---
Attempted OT evaluation, per RN patient is currently off the unit for a procedure, will follow and attempt at later time.
[2021-08-05] MEDS: MAGNESIUM SULF 2 GM/WATER 50ML 2 GM/50 ML BAG IVPB (12:46)
[2021-08-05] MEDS: SERTRALINE HCL 50 MG TABLET 200 MG PO (13:18)
[2021-08-05] MEDS: PANTOPRAZOLE 40 MG TABLET PO ×2 (13:19→21:00)
[2021-08-05] MEDS: ACETAMINOPHEN 325 MG TABLET 650 MG PO (16:57)
[2021-08-06] VITALS (7 sets, daily range): BP systolic 96–134; BP diastolic 54–79; PULSE 54–72; RESP 14–17; TEMP 36.4–37.4; O2SAT 96–100
[2021-08-06] MEDS: LACTATED RINGERS 1,000 ML 75 ML IV CONT (05:03)
[2021-08-06 05:50] LABS: Hemoglobin 11.5 g/dL (12.0-15.0); Mean Corpuscular HGB Conc 33.8 g/dl (32-36); Mean Corpuscular Hemoglobin 34.1 pg (26-34); Mean Corpuscular Volume 100.9 fl (80-100); Platelet Count Result 259 k/mm3 (150-375); Red Blood Count 3.37 M/mm3 (4.2-5.4); Red Cell Distribution Width 12.7 % (11.5-14.5); White Blood Count 7.4 K/mm3 (4.5-10.0)
[2021-08-06 06:16] LABS: Anion Gap 7 mmol/L (8-16); Blood Urea Nitrogen 7 mg/dL (7-17); Calcium 9.1 mg/dL (8.4-10.2); Carbon Dioxide 26 mmol/L (22-30); Chloride 105 mmol/L (98-107); Estimated CRCL calculation 44 ml/min; Estimated Glomerular Filt Rate > 60; Glucose 86 mg/dL (65-110); Magnesium 1.7 mg/dL (1.6-2.3); Sodium 138 mmol/L (137-145)
[2021-08-06] MEDS: PANTOPRAZOLE 40 MG TABLET PO ×2 (07:57→16:28)
[2021-08-06] MEDS: SERTRALINE HCL 50 MG TABLET 200 MG PO (08:25)
[2021-08-06] MEDS: FERROUS SULFATE 324 MG TABLET PO (08:25)
[2021-08-06] MEDS: THIAMINE HCL 100 MG TABLET PO (08:25)
[2021-08-06] MEDS: FOLIC ACID 1 MG TABLET PO (08:25)
[2021-08-06] MEDS: ONDANSETRON INJ 4 MG/2 ML VIAL IV PUSH ×2 (10:57→20:31)
--- NOTE | 2021-08-06 15:56 | PCPTNOTE ---
On 08/06/21, the student,Eugene RANGEL, provided care and completed [facility] documentation on this patient. I have reviewed the student's documentation and agree with the findings.
--- NOTE | 2021-08-06 16:23 | PM.IMPN ---
Progress Note: A&P Assessment and Plan (1) Colitis: Code(s): K52.9 - Noninfective gastroenteritis and colitis, unspecified Status: Acute Assessment and Plan: Ruled out. CT suggested sigmoid colonic wall thickening possibly indicative of colitis. Underwent colonoscopy on 08/05 with no evidence of colitis. IV Zosyn discontinued. Diet has been advanced. Appreciate Gastroenterology consultation. Analgesics and antiemetics available as needed. (2) Weight loss: Code(s): R63.4 - Abnormal weight loss Status: Acute Assessment and Plan: An ongoing issue over the last year, reportedly 40 lb weight loss. No evidence of malignancy on CT or colonoscopy. Most likely due to poor caloric intake as patient and daughter report that she is rarely able to eat due to persistent nausea and dry heaves. She needs to obtain a gastric emptying study as an outpatient and follow-up with Gastroenterology. Continue dietary supplements. (3) Dehydration: Code(s): E86.0 - Dehydration Status: Acute Assessment and Plan: Secondary to poor p.o. intake. Resolved. IV fluids discontinued as she is tolerating p.o. intake. (4) Generalized weakness: Code(s): R53.1 - Weakness Status: Acute Assessment and Plan: Secondary to dehydration and acute illness. She feels unsteady on her feet. Appreciate PT/OT eval. Fall precautions implemented. She feels unsafe to go home today due to her weakness but thinks she will be better tomorrow after additional PT/OT session. (5) Essential hypertension: Code(s): I10 - Essential (primary) hypertension Status: Chronic Assessment and Plan: Blood pressures were reviewed and have been well controlled with some readings on the low end of normal. Losartan-hydrochlorothiazide on hold. Monitor blood pressures trends and resume medications as appropriate. (6) Chronic GERD: Code(s): K21.9 - Gastro-esophageal reflux disease without esophagitis Status: Acute Assessment and Plan: Continue PPI. Large hiatal hernia noted on imaging. Continue with GI follow-up. (7) Iron deficiency anemia: Code(s): D50.9 - Iron deficiency anemia, unspecified Status: Acute Assessment and Plan: Hemoglobin and hematocrit have been within normal limits since March of this year. Slight downward trend this hospitalization, likely dilutional. H&H remaining stable no evidence of blood loss. Continue ferrous sulfate 325 mg daily. (8) Pre-diabetes: Code(s): R73.03 - Prediabetes Status: Acute Assessment and Plan: A1c is 5.0. Metformin currently on hold. May also be contributing to GI symptoms. (9) Tobacco abuse: Code(s): Z72.0 - Tobacco use Status: Acute Assessment and Plan: She reports smoking 5 cigarettes per day. Her daughter reports she sometimes smokes a half a pack a day. She declines need for nicotine patch at this time. Smoking cessation is imperative and will continue to be reinforced (10) Alcoholism: Code(s): F10.20 - Alcohol dependence, uncomplicated Status: Acute Assessment and Plan: Patient was reportedly drinking alcohol every night until she fell asleep. She reports that she has not drank in many weeks. Her daughter agrees that she has not had anything to drink in 1-2 weeks due to her inability to keep anything down. Continue initiate thiamine and folic acid. CIWA scores 0-2 today. No evidence of withdrawal. Alcohol cessation is imperative and has been discussed. Subjective Date/time seen: 08/06/21 16:23 Interval history: Date of service: 08/05/2021 Stephanie Fabian is a 71 year old female with a history of hypertension, hyperlipidemia, macular degeneration, prediabetes, anxiety, and gastritis who is seen in follow-up for abdominal pain and nausea. She is not feeling well today. She continues to complain of nausea an
[2021-08-06] MEDS: traZODone HCL 50 MG TABLET 300 MG PO (20:31)
[2021-08-07] VITALS: BP 107/69; BP 108/56; BP 108/75; BP 120/69; PULSE 58; RESP 16; TEMP 36.4; O2SAT 98
[2021-08-07 04:00] VITALS: BP 108/56; BP 115/69; PULSE 68; RESP 18; TEMP 36.8; O2SAT 95
[2021-08-07 04:47] LABS: Hematocrit 30.9 % (37.0-47.0); Hemoglobin 10.7 g/dL (12.0-15.0); Mean Corpuscular HGB Conc 34.6 g/dl (32-36); Mean Corpuscular Hemoglobin 33.5 pg (26-34); Mean Corpuscular Volume 96.9 fl (80-100); Platelet Count Result 268 k/mm3 (150-375); Red Blood Count 3.19 M/mm3 (4.2-5.4); Red Cell Distribution Width 12.4 % (11.5-14.5); White Blood Count 8.6 K/mm3 (4.5-10.0)
[2021-08-07 05:01] LABS: Anion Gap 5 mmol/L (8-16); Blood Urea Nitrogen 8 mg/dL (7-17); Calcium 9.1 mg/dL (8.4-10.2); Carbon Dioxide 28 mmol/L (22-30); Chloride 105 mmol/L (98-107); Estimated CRCL calculation 44 ml/min; Estimated Glomerular Filt Rate > 60; Glucose 87 mg/dL (65-110); Sodium 138 mmol/L (137-145)
[2021-08-07 08:00] VITALS: BP 117/65; BP 117/70; BP 131/70; PULSE 68; PULSE 77; PULSE 86; RESP 16; TEMP 36.9; O2SAT 96
[2021-08-07] MEDS: FOLIC ACID 1 MG TABLET PO (08:01)
[2021-08-07] MEDS: FERROUS SULFATE 324 MG TABLET PO (08:01)
[2021-08-07] MEDS: THIAMINE HCL 100 MG TABLET PO (08:01)
[2021-08-07] MEDS: SERTRALINE HCL 50 MG TABLET 200 MG PO (08:01)
[2021-08-07] MEDS: PANTOPRAZOLE 40 MG TABLET PO (08:01)
--- NOTE | 2021-08-07 10:58 | PM.DS ---
DS: Admitting Diagnosis Discharge Date 08/07/2021 Admitting Diagnosis Abdominal pain DS: Discharge Diagnosis Discharge Diagnosis (1) Colitis: Code(s): K52.9 - Noninfective gastroenteritis and colitis, unspecified Status: Acute Assessment and Plan: Ruled out. CT suggested sigmoid colonic wall thickening possibly indicative of colitis. Underwent colonoscopy on 08/05 with no evidence of colitis. IV Zosyn discontinued. Diet was advanced and she was able to tolerate regular diet. She was seen in consultation by Gastroenterology and will follow-up as an outpatient. (2) Weight loss: Code(s): R63.4 - Abnormal weight loss Status: Acute Assessment and Plan: An ongoing issue over the last year, reportedly 40 lb weight loss. No evidence of malignancy on CT or colonoscopy. Most likely due to poor caloric intake as patient and daughter report that she is rarely able to eat due to persistent nausea and dry heaves. She needs to obtain a gastric emptying study as an outpatient and follow-up with Gastroenterology. Continue dietary supplements. (3) Dehydration: Code(s): E86.0 - Dehydration Status: Acute Assessment and Plan: Secondary to poor p.o. intake. Resolved. IV fluids discontinued as she was tolerating p.o. intake. (4) Generalized weakness: Code(s): R53.1 - Weakness Status: Acute Assessment and Plan: Secondary to dehydration and acute illness. She reported feeling unsteady on her feet. Appreciate PT/OT eval. Fall precautions implemented. She worked with therapy and had improvement. Was able to ambulate independently. (5) Essential hypertension: Code(s): I10 - Essential (primary) hypertension Status: Chronic Assessment and Plan: Blood pressures were reviewed and were well controlled with some readings on the low end of normal. Losartan-hydrochlorothiazide initially held but resumed on discharge. BP stable. (6) Chronic GERD: Code(s): K21.9 - Gastro-esophageal reflux disease without esophagitis Status: Acute Assessment and Plan: Continue PPI. Large hiatal hernia noted on imaging. Continue with GI follow-up. (7) Iron deficiency anemia: Code(s): D50.9 - Iron deficiency anemia, unspecified Status: Acute Assessment and Plan: Hemoglobin and hematocrit have been within normal limits since March of this year. Slight downward trend this hospitalization, likely dilutional. H&H remained stable no evidence of blood loss. Continue ferrous sulfate 325 mg daily. (8) Pre-diabetes: Code(s): R73.03 - Prediabetes Status: Acute Assessment and Plan: A1c is 5.0. Metformin held during hospitalization, resumed on discharge. (9) Tobacco abuse: Code(s): Z72.0 - Tobacco use Status: Acute Assessment and Plan: She reports smoking 5 cigarettes per day. Her daughter reports she sometimes smokes a half a pack a day. She declined need for nicotine patch. She was educated on need for smoking cessation. (10) Alcoholism: Code(s): F10.20 - Alcohol dependence, uncomplicated Status: Acute Assessment and Plan: Patient was reportedly drinking alcohol every night until she fell asleep. She reports that she has not drank in many weeks. Her daughter agrees that she has not had anything to drink in 1-2 weeks due to her inability to keep anything down. CIWA scores 0-2, no evidence of withdrawal. Alcohol cessation is imperative and was discussed. She maintains that she is no longer drinking. DS: Summary Hospital Course Hospital Course: Date of admission: 08/04/2021 Date of discharge: 08/07/2021 Stephanie Fabian is a 71 year old female with a history of hypertension, hyperlipidemia, macular degeneration, prediabetes, anxiety, and gastritis who presented to the emergency department on 08/04/2021 after reporting for outpatient gastric emp
== END 2021-08-07 12:30 | disposition home or self-care (01) ==
LOC: ANHED 08:38 → ANH2MED 13:35
PROVIDERS: Internal Medicine Gastroenterology; Physician Assistant; Admitting Provider Internal Medicine; Emergency Provider Emergency Medicine; PCP Family Medicine; Visit Provider Hospitalist
PROC: 0DJD8ZZ Inspection of Lower Intestinal Tract, Via Natural or Artificial Opening Endoscopic (ICD-10-PCS; CPT 45378; principal; 2021-08-05 10:45)
DX: K57.30 Diverticulosis of large intestine without perforation or abscess without bleeding (principal); K64.8 Other hemorrhoids; K63.9 Disease of intestine, unspecified; R63.4 Abnormal weight loss; E86.0 Dehydration; I10 Essential (primary) hypertension; E78.5 Hyperlipidemia, unspecified; R53.1 Weakness; D50.9 Iron deficiency anemia, unspecified; R32 Unspecified urinary incontinence; F10.20 Alcohol dependence, uncomplicated; K44.9 Diaphragmatic hernia without obstruction or gangrene; K21.9 Gastro-esophageal reflux disease without esophagitis; R73.03 Prediabetes; Z79.84 Long term (current) use of oral hypoglycemic drugs; Z72.0 Tobacco use; Z68.1 Body mass index [BMI] 19.9 or less, adult
CPT/HCPCS: 45380; 36415; 74177; 80048; 80053; 81001; 82728; 82948; 83036; 83690; 83735; 84443; 85025; 85027; 88305; 96361; 96365; 96366; 96367; 96375; 96376; 97110; 97116; 97162; 97165; 97535; 99285; A9270; C9803; G0378; J2405; J2543; J2704; J3010; J3475; J3480; J7030; J7120; Q9967; U0003; U0005

== ENCOUNTER 2022-02-05 07:32 | Outpatient (CLI) | payer MEDICARE, SELFPAY ==
--- NOTE | ~2022-02-05 | NM_ITS ---
EXAM: NM gastric emptying study DATE: 02/05/2022 13:11 INDICATION: Nausea TECHNIQUE: A gastric emptying study was performed using the methodology of Sina GRAHAM, et al. J Nucl Med 2007; 48:568-572. The patient was given a meal consisting of 2 scrambled eggs labeled with 1 mCi Tc-99m sulfur colloid, 2 slices of toast, two packages of jam, and approximately 120 mL of water. Si multaneous anterior and posterior 1-min images of the abdomen were obtained with the patient supine a t multiple time points over a total period of 4 hours. The geometric mean of anterior and posterior v iews was determined, and the percentage retention was calculated for each time point. COMPARISON: CT dated 08/04/2021 FINDINGS: Gastric retention of the radiotracer-labeled meal was 75%, 43%, and 13% at the 1-hour, 2-hour, and 4- hour time points, respectively. With this technique, apparent rapid gastric emptying is suggested by <30% gastric retention at 1 hour. Delayed gastric emptying is defined by gastric retention of >90% at 1 hour, >60% retention at 2 hours, or >10% retention at 4 hours. IMPRESSION: 1. Mildly delayed gastric emptying at the 4 hour time point. Reviewed, dictated and finalized at location [facility].
== END 2022-02-05 07:33 | disposition home or self-care (01) ==
LOC: ANHIMG 07:34
PROVIDERS: PCP Family Medicine; Visit Provider Internal Medicine Gastroenterology
DX: R11.0 Nausea (principal); R10.9 Unspecified abdominal pain; K30 Functional dyspepsia
CPT/HCPCS: 78264; A9541

== ENCOUNTER 2022-05-21 13:52 | Outpatient (CLI) | payer MEDICARE, SELFPAY ==
[2022-05-21 14:31] LABS: Hematocrit 35.9 % (37.0-47.0); Hemoglobin 12.5 g/dL (12.0-15.0); Mean Corpuscular HGB Conc 34.8 g/dl (32-36); Mean Corpuscular Hemoglobin 32.6 pg (26-34); Mean Corpuscular Volume 93.5 fl (80-100); Mean Platelet Volume 10.1 fl (7.4-10.4); Platelet Count Result 346 k/mm3 (150-375); Red Blood Count 3.84 M/mm3 (4.2-5.4); Red Cell Distribution Width 12.8 % (11.5-14.5); White Blood Count 10.3 K/mm3 (4.5-10.0)
[2022-05-21 14:51] LABS: Alanine Aminotransferase 17 U/L (6-35); Albumin Level 4.4 g/dL (3.5-5.1); Alkaline Phosphatase 103 U/L (38-126); Amylase 79 U/L (30-110); Anion Gap 4 mmol/L (8-16); Aspartate Amino Transferase 35 U/L (14-36); Bilirubin,Total < 0.1 mg/dL (0.2-1.3); Blood Urea Nitrogen 15 mg/dL (7-17); Calcium 9.3 mg/dL (8.4-10.2); Carbon Dioxide 31 mmol/L (22-30); Chloride 95 mmol/L (98-107); Estimated Glomerular Filt Rate > 60; Glucose 114 mg/dL (65-110); Lipase 148 U/L (23-300); Potassium 4.2 mmol/L (3.4-5.0); Sodium 130 mmol/L (137-145)
== END 2022-05-21 13:53 | disposition home or self-care (01) ==
LOC: ANHLAB 13:55
PROVIDERS: PCP Family Medicine; Visit Provider Nurse Practitioner Family
DX: R10.13 Epigastric pain (principal)
CPT/HCPCS: 36415; 80053; 82150; 83690; 85027

== ENCOUNTER 2022-10-10 11:36 | Emergency (ER) | payer MEDICARE, SELFPAY ==
[2022-10-10] VITALS (9 sets, daily range): BP systolic 114–142; BP diastolic 68–89; PULSE 79–110; RESP 16–22; O2SAT 93–98
--- NOTE | ~2022-10-10 | CT_ITS ---
EXAMINATION: CTA abdomen pelvis DATE: 10/10/2022 13:35 INDICATION: Postprandial abdominal pain, weight loss, nausea TECHNIQUE: Computed tomography (CT) of the abdomen and pelvis was performed with 155 CC Omnipaque 350 intravenous contrast. Automated exposure control and iterative reconstruction technique were employe d. Exam dose: 220.77 mGy-cm total exam DLP. COMPARISON: 08/04/2021 CT abdomen pelvis 04/10/2021 Limited abdominal ultrasound examination 07/10/2019 CT abdomen pelvis FINDINGS: There is minimal by basilar dependent lower lobe atelectasis. Cardiomegaly. No pericardial or pleural effusion. Large sliding hiatal hernia. Status post cholecystectomy, which likely accounts for prominence of the common bile duct. No intrahe patic bile duct dilatation. No hepatic, splenic, pancreatic, adrenal space-occupying mass lesion. No right renal mass lesion is detected. Approximately 1.8 cm cystic lesion at the lower pole of the left kidney, previously measured 1.5 cm o n 07/10/2019. No urinary tract calculus or hydroureteronephrosis is evident. Nonspecific moderate diffuse thickenin g of the urinary bladder wall; cystitis is not excluded. There is atherosclerotic calcification of the abdominal aorta and iliac arteries but no abdominal aor tic aneurysm or dissection. There is calcification of the origin of the celiac trunk and renal arteri es. The superior mesenteric artery is widely patent without visible atherosclerotic calcification. No intraperitoneal or retroperitoneal or pelvic mass lesion or adenopathy or ascites is noted. There are numerous diverticula of left and right colon; no CT evidence of diverticulitis is noted. Th ere is a prominent of fecal material in the rectum and colon but no apparent bowel obstruction. Moderately severe degenerative disc disease at L5-S1. No suspicious osteolytic or osteoblastic lesion s are noted. IMPRESSION: Status post cholecystectomy Cardiomegaly Large sliding hiatal hernia Approximately 1.8 cm cystic lesion lower pole left kidney, mildly increased in size from 1.5 cm on Nonspecific moderate thickening and urinary bladder wall; cannot exclude cystitis No abdominal aortic aneurysm Diverticulosis of left and right colon; no CT evidence of diverticulitis Reviewed, dictated and finalized at [facility]. Reviewed, dictated and finalized at location [facility]. [facility] IMPRESSION: Status post cholecystectomy Cardiomegaly Large sliding hiatal hernia Approximately 1.8 cm cystic lesion lower pole left kidney, mildly increased in size from 1.5 cm on 07/10/2019 Nonspecific moderate thickening and urinary bladder wall; cannot exclude cystit is No abdominal aortic aneurysm Diverticulosis of left and right colon; no CT evidence of diverticulitis
--- NOTE | 2022-10-10 11:45 | ECG_ITS ---
Measurements Intervals [place] Rate: 95 P: 50 CT: 125 QRS: -33 QRSD: 87 T: 67 QT: 345 QTc: 435 Interpretive Statements SINUS RHYTHM POSSIBLE LEFT ATRIAL ENLARGEMENT LEFT AXIS DEVIATION DELAYED PRECORDIAL R/S TRANSITION BORDERLINE ECG COMPARED TO ECG 04/10/2021 13:38:19 LEFT-AXIS DEVIATION NOW PRESENT Electronically Signed On 10-10-2022 12:34:46 [employer] by Mynor Giles D.O.
--- NOTE | 2022-10-10 12:10 | ED.WEAKNESS ---
HPI - Weakness General Chief complaint: Weakness Stated complaint: weak, concerned for dehydration Time Seen by Provider: 10/10/22 11:50 History of Present Illness HPI Narrative: 72-year-old female with a history of hiatal hernia, chronic nausea due to delayed gastric emptying, on Reglan and follows with GI, here for evaluation of acute on chronic nausea, weakness, and decreased p.o. intake. Patient tells me that she has been dealing with these issues for years , they have acutely worsened over the past several days. Patient states that she has not been interested in eating any p.o. due to nausea. She has also noted epigastric discomfort for the past several days. She has been compliant with her medicines. Denies fevers, chills, constipation, diarrhea, chest pain, shortness of breath or sick contacts. Patient follows with Dr. Pierce for her hiatal hernia, had a CTA ordered to eval for possible mesenteric ischemia but patient never had the study done. Related Data Home Medications Medication Instructions Recorded Confirmed aspirin 81 mg tablet,delayed 81 mg PO DAILY 12/25/19 06/22/22 release (Aspir-Low) atorvastatin 40 mg tablet 40 mg PO DAILY 12/25/19 06/22/22 losartan 50 mg-hydrochlorothiazide 1 tablet PO DAILY 12/25/19 06/22/22 12.5 mg tablet magnesium oxide 400 mg PO DAILY 12/25/19 06/22/22 metformin 500 mg tablet 500 mg PO BID 12/25/19 06/22/22 omeprazole 40 mg capsule,delayed 40 mg PO BID 12/25/19 06/22/22 release sertraline 100 mg tablet 200 mg PO DAILY 12/25/19 06/22/22 trazodone 50 mg tablet 300 mg PO HS 12/25/19 06/22/22 meloxicam 7.5 mg tablet 7.5 mg PO DAILY 04/22/22 06/22/22 multivitamin 1 tablet PO DAILY 04/22/22 06/22/22 Allergies Allergy/AdvReac Type Severity Reaction Status Date / Time codeine AdvReac Unknown Nausea and Verified 10/10/22 11:36 Vomiting morphine AdvReac Unknown Headache Verified 10/10/22 11:36 Review of Systems Review of Systems: Gen: Denies fevers or chills Eyes: Denies eye pain or visual change ENT: Denies congestion Respiratory: Denies shortness of breath or cough CV: Denies chest pain or palpitations GI: Reports abdominal pain, nausea denies burning, urgency, frequency or hematuria Musculoskeletal: Denies back pain or muscle pain Neuro: Denies numbness, tingling, weakness or focal weakness Skin: Denies rash Except as documented, all other systems reviewed and negative [facility] Past Medical History Medical History Alcoholism Anxiety Arthritis Chronic GERD Degenerative disc disease Depression Essential hypertension Gastritis (03/2021) Hepatic abscess (08/2019) History of colon polyps Hypercholesterolemia Iron deficiency anemia Large hiatal hernia Macular degeneration Pelvic prolapse Pre-diabetes Hemoglobin A1c was 5.2% on 04/10/2021. Tobacco abuse Surgical History Surgical History History of appendectomy History of arthroscopy of left knee History of bilateral carpal tunnel release History of bladder suspension procedure History of cholecystectomy History of colonoscopy with polypectomy History of dilation and curettage x3 History of esophagogastroduodenoscopy 12/28/2019: Gastritis, dyskinesia of esophagus, hiatal hernia. 04/14/2021: Gastritis and large hiatal hernia measuring 5 cm. History of total hysterectomy Family History Family History Mother Cerebrovascular accident Family history of malignant neoplasm Hypertension Coronary artery disease Depression with suicidal ideation Sibling Overdose sister Breast cancer sister Heart disease brother Thyroid cancer Tuberculosis Daughter Brain cancer Social History Social History Social History: The patient is and lives with 1
[2022-10-10] MEDS: SODIUM CHLORIDE 0.9% IV 1,000 ML 999 ML IV CONT (12:16)
[2022-10-10] MEDS: ONDANSETRON INJ 4 MG/2 ML VIAL IV PUSH (12:16)
[2022-10-10] MEDS: FAMOTIDINE 20 MG/2 ML VIAL IV PUSH (12:16)
[2022-10-10 12:28] LABS: Basophils Absolute Auto 0.1 K/mm3 (0.0-0.1); Basophils Percent Auto 0.5 % (0.2-1.2); Eosinophils Absolute Auto 0.1 K/mm3 (0-0.3); Eosinophils Percent Auto 0.5 % (0-4.4); Hematocrit 40.2 % (37.0-47.0); Hemoglobin 13.2 g/dL (12.0-15.0); Immature Granulocyte Absolute 0.05 K/mm3 (0.00-0.031); Immature Granulocyte Percent A 0.4 % (0-0.5); Lymphocytes Absolute Auto 1.53 K/mm3 (0.9-3.2); Lymphocytes Percent Auto 11.8 % (18.3-44.2); Mean Corpuscular HGB Conc 32.8 g/dl (32-36); Mean Corpuscular Hemoglobin 32.3 pg (26-34); Mean Corpuscular Volume 98.3 fl (80-100); Mean Platelet Volume 10.9 fl (7.4-10.4); Monocytes Absolute Auto 0.8 K/mm3 (0.1-0.6); Neutrophils Absolute Auto 10.5 K/mm3 (1.3-6.7); Neutrophils Percent Auto 80.8 % (45.5-73.1); Platelet Count Result 344 k/mm3 (150-375); Red Blood Count 4.09 M/mm3 (4.2-5.4); Red Cell Distribution Width 12.9 % (11.5-14.5); White Blood Count 12.9 K/mm3 (4.5-10.0)
[2022-10-10 12:40] LABS: Lactic Acid Reflex 0.8 mmol/L (0.7-2.0)
[2022-10-10 12:41] LABS: Alanine Aminotransferase 12 U/L (6-35); Albumin Level 4.4 g/dL (3.5-5.1); Alkaline Phosphatase 103 U/L (38-126); Anion Gap 11 mmol/L (8-16); Aspartate Amino Transferase 28 U/L (14-36); Bilirubin,Total 0.6 mg/dL (0.2-1.3); Blood Urea Nitrogen 20 mg/dL (7-17); Calcium 9.7 mg/dL (8.4-10.2); Carbon Dioxide 26 mmol/L (22-30); Chloride 105 mmol/L (98-107); Estimated CRCL calculation 40 ml/min; Estimated Glomerular Filt Rate > 60; Glucose 136 mg/dL (65-110); Lipase 105 U/L (23-300); Magnesium 1.6 mg/dL (1.6-2.3); Phosphorus 3.3 mg/dL (2.5-4.5); Potassium 3.5 mmol/L (3.4-5.0); Sodium 142 mmol/L (137-145)
[2022-10-10 14:44] LABS: Appearance Urine Clear (Clear); Bilirubin Urine Negative (Negative); Blood Urine 1+ (Negative); Color Urine Yellow (Yellow); Glucose Urine UA Negative (Negative); Ketones Urine Negative (Negative); Leukocyte Esterase Ur Negative LEU/UL (Negative); Nitrate Urine Negative (Negative); Protein Urine Negative (Negative); Urobilinogen Urine 0.2 mg/dL (<2.0)
[2022-10-10 14:48] LABS: Bacteria Urine Trace /hpf; Mucus Urine Rare /lpf; Squamous Epithelial Cell Urine Occasional /hpf (Few)
[2022-10-10 15:16] LABS: Add Urine Microscopic? YES
== END 2022-10-10 15:31 | disposition home or self-care (01) ==
PROVIDERS: Emergency Provider Physician Assistant; PCP Surgery
DX: N39.0 Urinary tract infection, site not specified (principal); K30 Functional dyspepsia; K44.9 Diaphragmatic hernia without obstruction or gangrene; K21.9 Gastro-esophageal reflux disease without esophagitis; E78.00 Pure hypercholesterolemia, unspecified; D50.9 Iron deficiency anemia, unspecified; H35.30 Unspecified macular degeneration; R73.03 Prediabetes; F41.9 Anxiety disorder, unspecified; M19.90 Unspecified osteoarthritis, unspecified site; F32.A Depression, unspecified; Z86.010 Personal history of colon polyps; Z79.84 Long term (current) use of oral hypoglycemic drugs; Z90.710 Acquired absence of both cervix and uterus; Z79.82 Long term (current) use of aspirin; Z87.891 Personal history of nicotine dependence; R94.31 Abnormal electrocardiogram [ECG] [EKG]; I51.7 Cardiomegaly; R93.41 Abnormal radiologic findings on diagnostic imaging of renal pelvis, ureter, or bladder; K57.90 Diverticulosis of intestine, part unspecified, without perforation or abscess without bleeding; N28.1 Cyst of kidney, acquired
CPT/HCPCS: 36415; 74174; 80053; 81001; 83605; 83690; 83735; 84100; 85025; 87086; 87088; 93005; 96361; 96374; 96375; 99284; J2405; J7030; Q9967